=== PATIENT | male | born 1960 | race Caucasian/White ===

== ENCOUNTER 2021-11-11 08:50 | Day surgery (SDC) | payer BC, OTHER ==
--- NOTE | 2021-11-10 11:31 | HP ---
HISTORY AND PHYSICAL CHIEF COMPLAINT: Right knee pain. HISTORY OF PRESENT ILLNESS: Patient is a 61-year-old male who presents with progressive right knee pain for the past several years, worsening recently. He notes diffuse pain along with swelling and stiffness. He has locking and buckling. He has tried medications in addition to previous injections, with only partial temporary relief. He notes it severely limits him. PAST MEDICAL HISTORY: Significant for heart disease, keb-jzrjrmu-pmrnbdjzb diabetes. PAST SURGICAL HISTORY: Significant for rotator cuff repair and left hand surgery. CURRENT MEDICATIONS: Atorvastatin, metformin, Xarelto, Januvia. FAMILY HISTORY: Negative. SOCIAL HISTORY: Negative for current tobacco or alcohol use. REVIEW OF SYSTEMS: Sixteen-point review of systems otherwise reviewed and is noncontributory. PHYSICAL EXAMINATION: On examination, the patient is approximately 5 feet 7 inches, 230 pounds of endomorphic habitus. HEENT exam is nonfocal. Neck is supple. He has painless passive motion of the right hip. Straight-leg raise is negative. Active motion of the right knee: Minus 12 to 100 degrees of flexion. He has a mild effusion. He is tender about the medial joint line. Collaterals are stable, Sarahy is negative, Tesha's is equivocal. He has genu varum alignment. His distal neurovascular exam appears intact in the right lower extremity. He does have an antalgic gait pattern. Weightbearing notch, lateral and Merchant views of the right knee obtained in the office show severe medial compartment narrowing along with severe patellofemoral compartment narrowing. IMPRESSION: 1. Right knee severe medial and patellofemoral compartment osteoarthrosis. 2. Increased body mass index. 3. History of heart disease, on anticoagulation. RECOMMENDATIONS: I talked to the patient at length regarding his condition along with treatment options. At this point he is quite limited because of pain related to his osteoarthrosis despite previous conservative measures. After thorough discussion, he opts to proceed with surgery. We will plan to proceed with right total knee arthroplasty. We will reinstitute his Xarelto postoperatively. Risks and benefits were discussed at length in layman's terms. MMODL / IJN: [id number] /
[~2021-11-11 08:50] MED LIST: ACETAMINOPHEN TAB 500 MG TAB PO PRN; DEXAMETHASONE SOD PHOSPHATE 4 MG/ML 1 ML VIAL IV ONE; HYDROmorphone 0.5 MG/0.5 ML SYRINGE IVP PRN; MELOXICAM 7.5 MG TAB PO PRN; ONDANSETRON 4 MG/2 ML VIAL IVP ONE; TRANEXAMIC ACID 1,000 MG in SODIUM CHLORIDE 0.9% 100 ML IVPB PRN
[2021-11-11] MEDS: LACTATED RINGERS 1,000 ML IV SCH ×2 (09:20→14:31)
[2021-11-11 09:41] LABS: Glucose,Whole Blood 177 mg/dL (75-99)
[2021-11-11] MEDS ORDERED: MIDAZOLAM 2 MG/2 ML VIAL IVP ONE (09:51)
[2021-11-11] MEDS ORDERED: fentaNYL (PF) 50 MCG/ML 2 ML AMP IVP ONE (09:51)
[2021-11-11] MEDS ORDERED: PROPOFOL 10 MG/ML 20 ML VIAL IV ONE (10:30)
[2021-11-11] MEDS ORDERED: HYDROmorphone (PF) 1 MG/ML ONE (10:30)
[2021-11-11] MEDS ORDERED: fentaNYL (PF) 50 MCG/ML 2 ML AMP ONE (10:30)
[2021-11-11] MEDS ORDERED: ROPIVACAINE 5 MG/ML 30 ML VIAL ONE (10:30)
[2021-11-11] MEDS ORDERED: NEOSTIGMINE 1 MG/ML 10 ML VIAL ONE (10:30)
[2021-11-11] MEDS ORDERED: TRANEXAMIC ACID 1,000 MG/10 ML VIAL ONE (10:30)
[2021-11-11] MEDS ORDERED: GLYCOPYRROLATE 0.2 MG/ML 2 ML VIAL ONE (10:30)
[2021-11-11] MEDS ORDERED: SODIUM CHLORIDE 0.9% 100 ML BAG ONE (10:30)
[2021-11-11] MEDS ORDERED: ROCURONIUM 10 MG/ML (5 ML VIAL) IV ONE (10:30)
[2021-11-11] MEDS ORDERED: SODIUM CHLORIDE 0.9% (PF) 10 ML VIAL ONE (10:30)
[2021-11-11] MEDS ORDERED: SUCCINYLCHOLINE CHLORIDE 100 MG/5 ML SYR IV ONE (10:30)
--- NOTE | 2021-11-11 10:50 | P.ANPRN ---
Procedure Note - Anesthesia - Nerve Block Performed Right Adductor Canal Time Out Performed: Yes (09:51) Date of Procedure: 11/11/21 Procedure Start Time: Procedure Stop Time: :02 Location of Patient: PreOp Indication: Acute Post-Operative Pain, Requested by Surgeon (Dr Ye) Sedation Type: Sedate with meaningful contact maintained Preparation: Sterile Prep, Sterile Dressing Position: Supine Catheter: Indwelling Needle Types: Pajunk Needle Gauge: 21 Ultrasound used to visualize needle placement: Yes Ultrasound used to observe medication spread: Yes Injectate: 0.5% Ropivacaine (see comment for volume) (15cc) Blood Aspirated: No Pain Paresthesia on Injection Noted: No Resistance on Injection: Normal Image Stored and Saved: Yes Events: Uneventful and Well Tolerated
[2021-11-11] MEDS ORDERED: ROPIVACAINE 0.2%-NS ON-Q PUMP 1,090 MG, EMPTY PAIN BALL 1 EACH MISCELLANE PRN (10:51)
--- NOTE | 2021-11-11 10:51 | P.ANPRN ---
Procedure Note - Anesthesia - Nerve Block Performed Right iPack Time Out Performed: Yes Date of Procedure: 11/11/21 Procedure Start Time: 10:03 Procedure Stop Time: 10:11 Location of Patient: PreOp Indication: Acute Post-Operative Pain, Requested by Surgeon (Dr Ye) Sedation Type: Sedate with meaningful contact maintained Preparation: Sterile Prep Position: Supine Catheter: None Needle Types: Pajunk Needle Gauge: 21 Ultrasound used to visualize needle placement: Yes Ultrasound used to observe medication spread: Yes Injectate: 0.5% Ropivacaine (see comment for volume) (15cc + 5cc PF Normal saline) Blood Aspirated: No Pain Paresthesia on Injection Noted: No Resistance on Injection: Normal Image Stored and Saved: Yes Events: Uneventful and Well Tolerated
[2021-11-11] MEDS ORDERED: LACTATED RINGERS 1,000 ML IV ONE (11:44)
[2021-11-11] MEDS ORDERED: MAGNESIUM HYDROXIDE 2,400 MG/10 ML CUP PO PRN (12:18)
[2021-11-11] MEDS ORDERED: NALOXONE 0.4 MG/ML 1 ML VIAL IV PRN (12:18)
[2021-11-11] MEDS ORDERED: HYDROcodone/APAP 5-325MG 1 EACH TAB PO PRN (12:18)
[2021-11-11] MEDS ORDERED: HYDROcodone/APAP 7.5-325MG 1 EACH TAB PO PRN (12:18)
[2021-11-11] MEDS ORDERED: ONDANSETRON 4 MG/2 ML VIAL IVP PRN (12:18)
[2021-11-11] MEDS ORDERED: HYDROmorphone 1 MG/ML 1 ML SYRINGE IVP PRN ×2 (12:18)
--- NOTE | 2021-11-11 12:49 | P.OP ---
Date of Procedure: 11/11/21 Preoperative Diagnosis: Right knee severe tricompartmental osteoarthrosis Postoperative Diagnosis: Same Procedure(s) Performed: Right total knee arthroplastycementedposterior stabilized Implants: Depuy Attune size 7 cemented femoral component, size 6 cemented tibial component, 9 mm articular surface, 38 mm cemented patellar component. This is a posterior stabilized implant. Anesthesia: [facility] Surgeon: Christopher Ye Mental Retardation Nurse #1: Mukesh Oconnell Estimated Blood Loss (ml): 50 Pathology: other (Bone fragments) Condition: stable Disposition: PACU Indications for Procedure: The patient's a 61-year-old male who presents with progressive right knee pain secondary to osteoarthrosis despite conservative measures. A discussion of the risks and benefits of operative intervention versus continued conservative measures was made with the patient. He opted to proceed with surgery. Operative risks to include infection, neurovascular, development of blood clots, fracture, possible component loosening/failure need for subsequent procedures was discussed. Informed consent was obtained. Operative Findings: As below Description of Procedure: The patient was brought to the operating room, and after induction of spinal anesthesia the right lower extremity was prepped and draped in a normal fashion. The tourniquet was inflated to 270 mm marker. A longitudinal incision extending 3 finger breaths above the superior pole of patella extending to the medial aspect the tibial tubercle was then made. The skin and subcutaneous tissues were divided sharply. Electrocautery was used for hemostasis. A medial parapatellar arthrotomy was performed. The medial soft tissues to include the superficial and deep portions of the medial collateral ligament were elevated subperiosteally. The patella was everted. A portion of the retropatellar fat pad was excised sharply. The anterior cruciate ligament was sacrificed. Blunt retractors were placed. A starting hole was made in the distal femur 1 cm anterior to the posterior cruciate ligament origin. An intramedullary femoral guide was then inserted planning on 5 valgus distal cut with 9 mm distal resec tion. The cutting block was pinned in place. The distal cut was then made. The posterior referencing sizing guide was utilized. I felt size 7 was most appropriate. 3 of external rotation was built into the system and verified off the trans-epicondylar axis and the posterior condyles. The cutting block was pinned in place. The anterior, posterior, and chamfer cuts then made. Bone fragments were removed. The intercondylar guide was placed and the notch cut was made with a sagittal saw. The bone block was removed in one fragment. The trial component was then placed. There is good anterior to posterior and medial to lateral fit. The distal peg holes were drilled. The trial component was removed. Attention was then paid towards preparing the proximal femur. An extra medullary guide was utilized in line with the tibial shaft and second metatarsal distally. I planned on 2 mm resection from the medial compartment. The cutting block was pinned in place. The proximal tibial cut was then made. The bone was removed in one fragment. The remnants of the medial and lateral menisci were excised at the capsular junction with electrocautery. The tibia sized most appropriately at size 6. The trial femoral and tibial components were placed along with a 9 mm articular surface. I was able to obtain full flexion and extension with internal and external rotation. After several flexion and extension cycles, the tibial rotation was marked with electrocautery line with the medial one third of the tibial tubercle. Attention was then paid towards preparing the patella. A patella reamer was utilized taking stem to 14 mm of bone stock. A good flush cut was made. The patella sized most appropriately 38 mm. The peg holes were drilled. The trial components placed. I had good patellofemoral tracking with no hands technique. The trial components were then removed. The tibia was prepared in the appropriate rotation with appropriate drill and keel punch. The posterior osteophytes were removed with a curved osteotome. The flexion and extension gaps were checked and felt to be symmetric at 9 mm. A trial components were then removed. The bony surfaces were prepared with pulsatile lavage and dried. The tibial component was then cemented place was fully seated. Excess cement was removed. The femoral component cemented place and was fully seated. Excess cement was removed. The trial 9 mm articular surface was placed and the knee was put in full extension. The patella component was cemented place. After the cement had sufficiently hardened, the knee was again taken through a range of motion. Again I was able to obtain full flexion and extension with varus and valgus stress. The trial 9 mm articular surface was removed and the final one inserted. This was fully seated. Care was taken to avoid any soft tissue interposition. Pulsatile lavage was again utilized. The medial parapatellar arthrotomy was closed with #2 Ethibond suture. The tourniquet was deflated with approximately 65 minutes total tourniquet time. Final hemostasis was obtained with the cautery. There was minimal bleeding therefore a deep drain was not placed. The subcutaneous tissues were reapproximated with interrupted 2-0 Vicryl sutures. The skin was reapproximated with 3-0 subcuticular strata fix suture. Skin tape and adhesive was applied. A sterile dressing was applied. The patient was awoken from sedation and transferred to recovery room in good condition. Blood loss was estimated at 50 mL. No complications were incurred. Sponge and needle counts were correct at the end of the case. Bogdan CARPENTER assisted during the major components of this case to include exposure, bone resection, implantation, and closure.
[2021-11-11 13:19] LABS: Glucose,Whole Blood 269 mg/dL (75-99)
[2021-11-11] MEDS ORDERED: INSULIN ASPART (NovoLOG) 100 UNIT/ML VIAL SQ ONE (13:28)
--- NOTE | 2021-11-11 13:38 | XR ---
Right knee HISTORY: Status post right knee arthroplasty 2 views the right knee Patient is status post right knee arthroplasty. There is anatomic alignment. Lucency is present withi n the soft tissues. There are vascular calcifications noted. Bone mineralization is reduced. IMPRESSION: Orthopedic follow-up.
[2021-11-11] MEDS: INSULIN ASPART (NovoLOG) 100 UNIT/ML VIAL SQ SCH ×2 (17:18→21:37)
--- NOTE | 2021-11-11 17:33 | P.CONS ---
History of Present Illness - Reason for Consult Consult date: 11/11/21 Medical Management Requesting physician: Mukesh Oconnell - History of Present Illness History of Presenting Illness: Patient is a very pleasant 61-year-old male with a past medical history of hyperlipidemia, type II gma-djbuncv-komsdmpdw diabetes mellitus, paroxysmal atrial fibrillation on anticoagulation with Xarelto, and osteoarthritis. Patient is currently admitted to orthopedic surgery team under Dr. Ye and underwent an elective right total knee arthroplasty secondary to severe tricompartmental osteoarthrosis of right knee. We have been consulted to follow along with patient for continued medical management throughout his hospitalization. Patient seen and fully evaluated at the bedside. He reports postsurgical pain is completely controlled at this time. He denies having any postoperative nausea or vomiting and is tolerating oral intake without any difficulties. Patient denies any recent fevers or infections. He denies history of blood clots. Patient denies having any headache, lightheadedness, dizziness, chest pain, shortness of breath, nausea, vomiting, or experiencing any numbness/tingling in his extremities. Review of systems: Pertinent positives and negatives as discussed in HPI, a complete review of systems was performed and all other systems are negative. Physical exam: Vital signs reviewed and stable. General: Nontoxic, no distress and appears stated age. Derm: Skin warm and dry, normal coloration for ethnicity. Surgical dressing and ice pack and need to right knee. Head: Atraumatic, normocephalic and symmetric. Eyes: EOMs intact, no lid lag, and anicteric sclera Mouth: no lip lesions, mucus membranes moist Cardiovascular: regular rate and rhythm with normal S1S2, no murmur, positive posterior tibial pulses bilaterally, and cap refill < 2 seconds. Lungs: Respirations even, regular, and unlabored on room air. Lungs CTA bilaterally, no rhonchi, no rales, no wheezing, and no accessory muscle usage. Abdominal: Obese abdomen soft, nontender to palpation, no guarding, no appreciable organomegaly Ext: ROM intact. No gross muscle atrophy, no edema, no contractures Neuro: Speech clear, face symmetrical and CN II-XII grossly intact with no noted focal neuro deficits Psych: Alert and oriented to person, place, time, and situation. Appropriate and pleasant affect. Assessment and Plan of Care: Status post right total knee arthroplasty completed by Dr. Ye 11/11/21. -Management per primary admitting Gen. surgery team including pain management, DVT prophylaxis, weightbearing, and PT/OT. Type II jdx-oyskhha-jjaqabaen diabetes mellitus with hyperglycemia -Blood glucose 269 -Hold oral hypoglycemic medications and place patient on glycemic protocol with NovoLog sliding scale. Hyperlipidemia -Continue daily medication regimen. Paroxysmal atrial fibrillation on anticoagulation with Xarelto -Patient has been cleared by surgery team to resume Xarelto Thank you for allowing us to participate in the care of this pleasant patient. Do not hesitate to contact us with questions. Someone can be reached from the [facility] hospitalist group all hours of the day at [phone] or via [employer]. Past Medical History Past Medical History: Atrial Fibrillation, Diabetes Mellitus, Hyperlipidemia, Skin Disorder Additional Past Medical History / Comment(s): wound rt heel History of Any Multi-Drug Resistant Organisms: None Reported Past Surgical History: Cardiac Ablation, Orthopedic Surgery Additional Past Surgical History / Comment(s): cardioversion, rotator cuff surg., hand surg., throat surgery, total right knee 2021. Past Anesthesia/Blood Transfusion Reactions: No Reported Reaction Smoking Status: Never smoker Past Alcohol Use History: None Reported Past Drug Use History: None Reported - Past Family History Mother Family Medical History: No Reported History Medications and Allergies Home Medications Medication Instructions Recorded Confirmed Type Rivaroxaban [Xarelto] 20 mg PO DAILY 11/02/14 11/11/21 History metFORMIN HCL [Glucophage] 500 mg PO BID 11/02/14 11/11/21 History Atorvastatin [Lipitor] 10 mg PO DAILY 05/09/15 11/11/21 History Pioglitazone [Actos] 30 mg PO DAILY 11/11/21 11/11/21 History sitaGLIPtin PHOSPHATE [Januvia] 100 mg PO DAILY 11/11/21 11/11/21 History Allergies Allergy/AdvReac Type Severity Reaction Status Date / Time No Known Allergies Allergy Verified 06/14/15 10:22 Physical Exam Vitals: Vital Signs Temp Pulse Resp BP Pulse Ox 11/11/21 14:32 68 16 134/63 99 11/11/21 14:17 69 16 121/56 99 11/11/21 14:02 68 16 128/61 98 11/11/21 13:47 62 16 130/61 98 11/11/21 13:33 69 16 128/60 97 11/11/21 13:19 67 16 120/57 97 11/11/21 13:03 62 16 137/63 99 11/11/21 12:48 98 F 78 18 141/66 91 L 11/11/21 10:13 66 18 127/65 99 11/11/21 09:29 97.8 F 80 18 150/69 97 Intake and Output 11/11/21 11/11/21 11/11/21 06:59 14:59 22:59 Intake Total 1350 Output Total 50 Balance 1300 Intake: IV 1350 Output: Estimated Blood Loss 50 Other: Weight 108.5 kg Results Labs: Abnormal Lab Results - Last 24 Hours (Table) 11/11/21 11/11/21 Range/Units 09:36 13:18 POC Glucose (mg/dL) 177 H 269 H (75-99) mg/dL
[2021-11-11] MEDS ORDERED: SENNOSIDES-DOCUSATE SODIUM 1 EACH TAB PO SCH (21:00)
[2021-11-11 21:19] LABS: Glucose,Whole Blood 218 mg/dL (75-99)
[2021-11-12 07:13] LABS: Glucose,Whole Blood 185 mg/dL (75-99)
[2021-11-12 07:48] LABS: ALT 15 U/L (4-49); AST 20 U/L (17-59); African American GFR (CKD) >90 (>60 ml/min/1.73 sqM); Albumin 3.6 g/dL (3.5-5.0); Albumin/Globulin Ratio 1.2; Alkaline Phosphatase 52 U/L (38-126); Anion Gap 9 mmol/L; Blood Urea Nitrogen 21 mg/dL (9-20); Calcium 8.3 mg/dL (8.4-10.2); Carbon Dioxide 21 mmol/L (22-30); Chloride 103 mmol/L (98-107); Globulin 2.9 g/dL; Glucose 184 mg/dL (74-99); Magnesium 1.3 mg/dL (1.6-2.3); Non-African American GFR(CKD) 87 (>60 ml/min/1.73 sqM); Potassium 4.2 mmol/L (3.5-5.1); Sodium 133 mmol/L (137-145); Total Bilirubin 0.5 mg/dL (0.2-1.3); Total Protein 6.5 g/dL (6.3-8.2)
[2021-11-12] MEDS: INSULIN ASPART (NovoLOG) 100 UNIT/ML VIAL SQ SCH ×2 (07:53→12:11)
[2021-11-12] MEDS ORDERED: ATORVASTATIN 10 MG TAB PO SCH (09:00)
[2021-11-12] MEDS ORDERED: RIVAROXABAN 10 MG TAB PO SCH (09:00)
[2021-11-12 09:39] LABS: Basophils # (A) 0.01 X 10*3/uL (0.00-0.10); Basophils % (A) 0.1 %; Eosinophils # (A) 0.01 X 10*3/uL (0.04-0.35); Eosinophils % (A) 0.1 %; HCT 34.3 % (39.6-50.0); HGB 11.4 g/dL (13.0-17.0); Immature Grans, Automated 0.3 %; Lymphocytes # (A) 2.24 X 10*3/uL (0.90-5.00); Lymphocytes % (A) 18.7 %; MCH 31.8 pg (27.0-32.0); MCHC 33.2 g/dL (32.0-37.0); MCV 95.5 fL (80.0-97.0); Mean Platelet Volume 9.7 fL (9.5-12.2); Monocytes # (A) 0.94 X 10*3/uL (0.20-1.00); Monocytes % (A) 7.9 %; NRBC Per 100 WBC 0 /100 WBCS (0.0-0.0); Neutrophils # (A) 8.72 X 10*3/uL (1.80-7.70); Neutrophils % (A) 72.9 %; Platelet Count 222 X 10*3/uL (140-440); RBC 3.59 X 10*6/uL (4.40-5.60); RDW 12.7 % (11.5-14.5); WBC 11.96 X 10*3/uL (4.50-10.00)
--- NOTE | 2021-11-12 10:06 | P.PN ---
Progress Note - Text Progress Note Date: 11/12/21 (285) Anesthesiology Postop day 1 status post total knee arthroplasty with adductor canal catheter. Patient doing well. VAS 1 out of 10. Increases to 4 out of 10 with activity. Breakthrough meds available Gross strength intact in lower extremity. Afebrile. Denies alterations in sensorium. Catheter site intact. Heart regular rate Lungs nonlabored Abdomen nondistended Assessment: Postop day 1 status post total knee arthroplasty with adductor canal catheter Plan: All questions answered. Maintain catheter 2 more days with patient removal at home. Instructions were given at discharge.
--- NOTE | 2021-11-12 10:20 | P.PN ---
Subjective Progress Note Date: 11/12/21 Principal diagnosis: Status post right total knee arthroplasty Patient evaluated at bedside, he is resting comfortably. He did very well with physical therapy.. His pain is well-controlled. Currently he denies any headaches, lightheadedness, chest pain or shortness of breath. Objective - Vital Signs Vital signs: Vital Signs Temp 99.1 F 11/12/21 08:00 Pulse 73 11/12/21 08:00 Resp 16 11/12/21 08:00 BP 147/72 11/12/21 08:00 Pulse Ox 95 11/12/21 08:00 Intake & Output 11/11/21 11/12/21 11/12/21 18:59 06:59 18:59 Intake Total 1350 Output Total 50 400 Balance 1300 -400 Weight 108.5 kg Intake: IV 1350 Output: Urine 400 Estimated Blood Loss 50 Other: Voiding Method Toilet # Voids 1 - Exam Right lower extremity: Incision is clean, dry, and intact. The exofin fusion tape is in good condition. There is minimal soft tissue swelling and ecchymosis surrounding the medial and lateral aspects of the incision. Calf is soft, no tenderness with palpation. Plantar flexion, dorsiflexion, EHL, FHL are intact. Sensory exam to light touch throughout the extremity is intact, dorsal pedis pulses 2+. - Labs CBC & Chem 7: 11/12/21 05:30 11/12/21 05:30 Labs: Abnormal Lab Results - Last 24 Hours (Table) 11/11/21 11/11/21 11/12/21 Range/Units 13:18 21:18 05:30 WBC 11.96 H (4.50-10.00) X 10*3/uL RBC 3.59 L (4.40-5.60) X 10*6/uL Hgb 11.4 L (13.0-17.0) g/dL Hct 34.3 L (39.6-50.0) % Neutrophils # 8.72 H (1.80-7.70) X 10*3/uL Eosinophils # 0.01 L (0.04-0.35) X 10*3/uL Sodium (137-145) mmol/L Carbon Dioxide (22-30) mmol/L BUN (9-20) mg/dL Glucose (74-99) mg/dL POC Glucose (mg/dL) 269 H 218 H (75-99) mg/dL Calcium (8.4-10.2) mg/dL Magnesium (1.6-2.3) mg/dL 11/12/21 11/12/21 Range/Units 05:30 07:12 WBC (4.50-10.00) X 10*3/uL RBC (4.40-5.60) X 10*6/uL Hgb (13.0-17.0) g/dL Hct (39.6-50.0) % Neutrophils # (1.80-7.70) X 10*3/uL Eosinophils # (0.04-0.35) X 10*3/uL Sodium 133 L (137-145) mmol/L Carbon Dioxide 21 L (22-30) mmol/L BUN 21 H (9-20) mg/dL Glucose 184 H (74-99) mg/dL POC Glucose (mg/dL) 185 H (75-99) mg/dL Calcium 8.3 L (8.4-10.2) mg/dL Magnesium 1.3 L (1.6-2.3) mg/dL Assessment and Plan Assessment: Postoperative day #1 status post right total knee arthroplasty Plan: Pain control, plan for discharge home on oral medication DVT prophylaxis, Xarelto 20 mg has been resuming Wound care instructions were discussed, this will include icing and elevating along with showering Encourage incentive spirometer Home health care after discharge Medical recommendations Discharge planning: Stable for discharge home today Time with Patient: Less than 30
--- NOTE | 2021-11-12 10:27 | P.DS ---
Providers Date of admission: 11/11/2021 Expected date of discharge: 11/12/21 Attending physician: Christopher Ye Consults: 11/11/21 12:20 Consult Physician Routine Consulting Provider: Dahlia Mcmahan Consult Reason/Comments: Medical Management Do you want consulting provider notified?: Yes Primary care physician: Candy Butcher MD Hospital Course: Date of admission: 11/11/2021 Date of discharge: 11/12/2021 Admission diagnosis: Status post post right total knee arthroplasty Discharge diagnosis: Same Attending physician: Dr. Ye Surgical procedures: Right total knee arthroplasty Brief history: Patient is a 61 year-old male with a history of progressive primary right knee osteoarthritis. At this point patient has failed conservative treatment measures and has opted to proceed with a elective right total knee arthroplasty. Hospital course: Details of patient's surgery can be found in operative report. Patient tolerated the procedure well and was subsequently transported to orthopedic floor. Patient's orthopeidc and medical care was provided daily. Patient had daily laboratory tests performed for evaluation of overall blood counts. Patient had daily physical therapy to include strengthening range of motion as well as education with walker ambulation. Patient was treated with Xarelto for their postoperative DVT prophylaxis during their inpatient stay. Patient was noted to have a relatively uneventful postoperative course. Patient reported satisfactory pain control with oral pain medications by postoperative day 0. Patient showed satisfactory progress with physical therapy. Patient moved steadily through the program and had no difficulty meeting the goals by postoperative day 1. Given patient's otherwise satisfactory course and having met physical therapy goals, plan is to discharge patient home on postoperative day 1. Discharge condition/disposition: Patient will be discharged home in stable condition. Discharge medications: Instructions are given on resumption of patient's normal daily medications per primary care recommendation, in addition patient will be prescribed [place] 7.5 mg/325 mg, Colace 100 mg. Discharge instructions: 1. Wound care and infection precautions, keep incision dry and covered while showering, no lotions, creams, moisturizers. No soaking, tubs, pools, hottubs. Do not scrub over the incision. 2. Weight-bear as tolerated with walker / cane until follow-up. 3. Ice and elevate when necessary. Do not exceed 20 minutes per hour with ice pack. 4. Utilize compression sleeve until seen at first follow up appointment. 5. Visiting nursing care. 6. Home physical therapy including home CPM. 7. Pain meds and anticoagulants per prescription. 8. Pain medication has potential to cause constipation. Increase oral fluid and fiber intake. Contact primary care provider if you have not had a bowel movement within 48 hours after discharge 9. No anti-inflammatory medication until discussed at first post operative visit, this including Motrin, Aleve, Mobic, Diclofenac. 10. Follow up in office at 2 weeks postop with Bogdan Oconnell PA-C/Francis Cason 11. Follow up with your primary care doctor 7-10 days after discharge. 12. Contact [facility] with any questions, . Procedures: Right total knee arthroplasty Patient Condition at Discharge: Good Plan - Discharge Summary Discharge Rx Participant: Yes New Discharge Prescriptions: New Docusate [Colace] 100 mg PO DAILY #30 capsule HYDROcodone/APAP 7.5-325MG [[place] 7.5] 1 - 2 each PO Q6HR PRN #42 tab PRN Reason: Pain No Action metFORMIN HCL [Glucophage] 500 mg PO BID Rivaroxaban [Xarelto] 20 mg PO DAILY Atorvastatin [Lipitor] 10 mg PO DAILY sitaGLIPtin PHOSPHATE [Januvia] 100 mg PO DAILY Pioglitazone [Actos] 30 mg PO DAILY Discharge Medication List Rivaroxaban [Xarelto] 20 mg PO DAILY 11/02/14 [History] metFORMIN HCL [Glucophage] 500 mg PO BID 11/02/14 [History] Atorvastatin [Lipitor] 10 mg PO DAILY 05/09/15 [History] Pioglitazone [Actos] 30 mg PO DAILY 11/11/21 [History] sitaGLIPtin PHOSPHATE [Januvia] 100 mg PO DAILY 11/11/21 [History] Docusate [Colace] 100 mg PO DAILY #30 capsule 11/12/21 [Rx] HYDROcodone/APAP 7.5-325MG [[place] 7.5] 1 - 2 each PO Q6HR PRN #42 tab 11/12/21 [Rx] Follow up Appointment(s)/Referral(s): [facility], [NON-STAFF] - As Needed Francis Webster, PAC [PHYSICIAN FENCE BUILDER] - 2 Weeks [facility] [NON-STAFF] - As Needed (Continuous Passive Motion knee machine and walker) Activity/Diet/Wound Care/Special Instructions: Orthopedic Discharge Instructions: 1. Wound care and infection precautions, keep incision dry and covered while showering, no lotions, creams, moisturizers. No soaking, pools, hot tubs. Do not scrub over incision. 2. Weight-bear as tolerated with walker / cane until follow-up. 3. Ice and elevate when necessary. Do not exceed 20 minutes per hour with ice pack. 4. Utilize compression sleeve until seen at first follow up appointment. 5. Pain meds and anticoagulants per prescription. 6. Pain medication has potential to cause constipation. Increase oral fluid and fiber intake. Contact primary care provider if you have not had a bowel movement within 48 hours after discharge. 7. No anti-inflammatory medication until discussed at first post operative visit, this including Motrin, Aleve, Mobic, Diclofenac. 8. Follow up in office at 2 weeks postop with Bogdan Oconnell PA-C/Francis Webster PA-C 9. Follow up with your primary care doctor 7-10 days after discharge. 10. Contact [facility] with any questions, . Discharge Disposition: HOME WITH HOME HEALTH SERVICES
--- NOTE | 2021-11-12 10:46 | P.PN ---
Subjective Progress Note Date: 11/12/21 History of Presenting Illness: Patient is a very pleasant 61-year-old male with a past medical history of hyperlipidemia, type II ymi-zhogtwd-faloovehk diabetes mellitus, paroxysmal atrial fibrillation on anticoagulation with Xarelto, and osteoarthritis. Patient is currently admitted to orthopedic surgery team under Dr. Ye and underwent an elective right total knee arthroplasty secondary to severe tricompartmental osteoarthrosis of right knee. We have been consulted to follow along with patient for continued medical management throughout his hospitaliz ation. Physical exam: Patient seen and fully evaluated at bedside this morning. He was sitting up in chair and appeared to be doing well. Patient reports postoperative pain remains controlled and continues to deny having any complaints including headache, lightheadedness, dizziness, chest pain, palpitations, shortness of breath, or experiencing any numbness/tingling/weakness in his extremities. Patient has been ambulatory and broom with walker. Patient's magnesium levels were critically low 1.3, orders place for 4 g for replacement. Patient medically stable for discharge once magnesium has been replaced and will be started on oral daily supplements. Patient to follow up outpatient for redraw of labs in 3 days with results to be sent to PCP for follow-up. Vital signs reviewed and stable. General: Nontoxic, no distress and appears stated age. Derm: Skin warm and dry, normal coloration for ethnicity. Surgical dressing and ice pack and need to right knee. Head: Atraumatic, normocephalic and symmetric. Eyes: EOMs intact, no lid lag, and anicteric sclera Mouth: no lip lesions, mucus membranes moist Cardiovascular: regular rate and rhythm with normal S1S2, no murmur, positive posterior tibial pulses bilaterally, and cap refill < 2 seconds. Lungs: Respirations even, regular, and unlabored on room air. Lungs CTA bilaterally, no rhonchi, no rales, no wheezing, and no accessory muscle usage. Abdominal: Obese abdomen soft, nontender to palpation, no guarding, no appreciable organomegaly Ext: ROM intact. No gross muscle atrophy, no edema, no contractures Neuro: Speech clear, face symmetrical and CN II-XII grossly intact with no noted focal neuro deficits Psych: Alert and oriented to person, place, time, and situation. Appropriate and pleasant affect. Assessment and Plan of Care: Hypomagnesemia -Replaced with 4 g IVPB and start patient on oral daily supplements Mag-Ox 400 M GH morning. -Patient medically stable for discharge once magnesium has been replaced and to follow up outpatient for redraw of levels in 3 days. Results to be sent to PCP for follow-up. Status post right total knee arthroplasty completed by Dr. Ye 11/11/21. -Management per primary admitting Gen. surgery team including pain management, DVT prophylaxis, weightbearing, and PT/OT. Type II mlu-whwtakf-rvtuvppnr diabetes mellitus with hyperglycemia -Blood glucose 269 -Hold oral hypoglycemic medications and place patient on glycemic protocol with NovoLog sliding scale. Hyperlipidemia -Continue daily medication regimen. Paroxysmal atrial fibrillation on anticoagulation with Xarelto -Patient has been cleared by surgery team to resume Xarelto Thank you for allowing us to participate in the care of this pleasant patient. Do not hesitate to contact us with questions. Someone can be reached from the [facility] hospitalist group all hours of the day at [phone] or via [employer]. Objective - Vital Signs Vital signs: Vital Signs Temp 99.1 F 11/12/21 08:00 Pulse 73 11/12/21 08:00 Resp 16 11/12/21 08:00 BP 147/72 11/12/21 08:00 Pulse Ox 95 11/12/21 08:00 Intake & Output 11/11/21 11/12/21 11/12/21 18:59 06:59 18:59 Intake Total 1350 Output Total 50 400 Balance 1300 -400 Weight 108.5 kg Intake: IV 1350 Output: Urine 400 Estimated Blood Loss 50 Other: Voiding Method Toilet # Voids 1 - Labs CBC & Chem 7: 11/12/21 05:30 11/12/21 05:30 Labs: Abnormal Lab Results - Last 24 Hours (Table) 11/11/21 11/11/21 11/12/21 Range/Units 13:18 21:18 05:30 WBC 11.96 H (4.50-10.00) X 10*3/uL RBC 3.59 L (4.40-5.60) X 10*6/uL Hgb 11.4 L (13.0-17.0) g/dL Hct 34.3 L (39.6-50.0) % Neutrophils # 8.72 H (1.80-7.70) X 10*3/uL Eosinophils # 0.01 L (0.04-0.35) X 10*3/uL Sodium (137-145) mmol/L Carbon Dioxide (22-30) mmol/L BUN (9-20) mg/dL Glucose (74-99) mg/dL POC Glucose (mg/dL) 269 H 218 H (75-99) mg/dL Calcium (8.4-10.2) mg/dL Magnesium (1.6-2.3) mg/dL 11/12/21 11/12/21 Range/Units 05:30 07:12 WBC (4.50-10.00) X 10*3/uL RBC (4.40-5.60) X 10*6/uL Hgb (13.0-17.0) g/dL Hct (39.6-50.0) % Neutrophils # (1.80-7.70) X 10*3/uL Eosinophils # (0.04-0.35) X 10*3/uL Sodium 133 L (137-145) mmol/L Carbon Dioxide 21 L (22-30) mmol/L BUN 21 H (9-20) mg/dL Glucose 184 H (74-99) mg/dL POC Glucose (mg/dL) 185 H (75-99) mg/dL Calcium 8.3 L (8.4-10.2) mg/dL Magnesium 1.3 L (1.6-2.3) mg/dL
[2021-11-12] MEDS: MAGNESIUM SULFATE-D5W PMX 1 GM in DEXTROSE/WATER 1 100ML.BAG IVPB SCH ×4 (11:01→14:29)
[2021-11-12 11:45] LABS: Glucose,Whole Blood 211 mg/dL (75-99)
[2021-11-12 16:39] VITALS: BP 177/73; PULSE 82; RESP 15; TEMP 99.2
== END 2021-11-12 17:37 | disposition home health service (06) ==
LOC: OR 08:50 → 4SSUR 12:43 → OR 11-12 17:37
PROVIDERS: ATTEND Orthopaedic Surgery
DX: M17.11 Unilateral primary osteoarthritis, right knee (principal); E78.5 Hyperlipidemia, unspecified; I49.9 Cardiac arrhythmia, unspecified; E11.9 Type 2 diabetes mellitus without complications
CPT/HCPCS: 27447; 64999; 64448; 97161; 76942; 80053; 83735; 85025; 88300; 73560; C1713 ×2; C1776; J2250; J1100; J0690 ×2; J2405; J3010; J3475; J2795

== ENCOUNTER → 2022-08-17 | Outpatient (CLI) | payer BC | END | disposition home or self-care (01) | LOC: LABPAT 07:55 | PROVIDERS: ATTEND Orthopaedic Surgery | DX: Z01.812 Encounter for preprocedural laboratory examination (principal); Z22.322 Carrier or suspected carrier of Methicillin resistant Staphylococcus aureus; M17.12 Unilateral primary osteoarthritis, left knee | CPT/HCPCS: 87070 ==

== ENCOUNTER → 2022-08-31 | Outpatient (CLI) | payer BC ==
[~2022-08-31] MED LIST changes: -ACETAMINOPHEN TAB 500 MG TAB PO PRN; -DEXAMETHASONE SOD PHOSPHATE 4 MG/ML 1 ML VIAL IV ONE; +DOBUTamine DRIP for NUC MED 500 MG in DEXTROSE/WATER 1 250ML.BAG IV PRN; -HYDROmorphone 0.5 MG/0.5 ML SYRINGE IVP PRN; -MELOXICAM 7.5 MG TAB PO PRN; -ONDANSETRON 4 MG/2 ML VIAL IVP ONE; -TRANEXAMIC ACID 1,000 MG in SODIUM CHLORIDE 0.9% 100 ML IVPB PRN
--- NOTE | 2022-08-31 13:14 | CA ---
Dobutamine Stress Echocardiogram Report Phu Guillermo Age: 62 Gender: M : 1960 Exam Date: 08/31/2022 09:21 Exam Location: [facility] Ordering Physician: Alejandro Richardson MD Referring Physician: Tiffany Santiago [employer] Manager: Paulina King RDCS Technologist: Ht (in): 67 Wt (lb): 219 Procedure CPT: Indication: I48.91 UNSP ATRIAL FIBRILLATION ICD-9 Codes: Rhythm: Patient History: Diabetes mellitus, Hyperlipidemia Cardiac Medications: Medications in past 24 hours: Contrast: Total Dose (mL): Stress Results Protocol: Peak Dose (???g/kg/min): 30 Duration (min:sec): Atropine:(mg) Target HR: 135 Double Product: [id number] Resting HR: 82 Resting BP: 109 / 67 Peak HR: 145 Peak BP: 162 / 38 Max Predicted HR: 159 91 % Max Predicted HR Stress Summary: BP Response: Reason for Termination: Exceeded target heart rate Cardiac Symptoms: ECG Analysis Resting EKG: Stress EKG: Arrhythmia: Echo Analysis Base Echo Analysis: Low Echo Anaylsis: Peak Echo Analysis: Recovery Echo: MEASUREMENTS (Male/Female) Normal Values CONCLUSIONS Mildly abnormal EKG in response to dobutamine Normal echocardiogram in responsive to dobutamine with no wall motion abnormalities noted Dr. Francisco Montague MD (Electronically Signed) Final Date: 31 August 2022 13:13
== END | disposition home or self-care (01) ==
LOC: RADNMMAIN 08:43
PROVIDERS: ATTEND Family Medicine
DX: I48.91 Unspecified atrial fibrillation (principal)
CPT/HCPCS: 93351; Q9950

== ENCOUNTER → 2022-11-30 | Outpatient (CLI) | payer BC ==
[2022-11-30 14:35] LABS: Basophils # (A) 0.02 X 10*3/uL (0.00-0.10); Basophils % (A) 0.3 %; Eosinophils # (A) 0.17 X 10*3/uL (0.04-0.35); Eosinophils % (A) 2.2 %; HCT 38.5 % (39.6-50.0); HGB 12.5 g/dL (13.0-17.0); Immature Grans, Automated 0.3 %; Lymphocytes # (A) 1.99 X 10*3/uL (0.90-5.00); Lymphocytes % (A) 25.6 %; MCH 31.5 pg (27.0-32.0); MCHC 32.5 g/dL (32.0-37.0); Mean Platelet Volume 10.1 fL (9.5-12.2); Monocytes # (A) 0.62 X 10*3/uL (0.20-1.00); NRBC Per 100 WBC 0 /100 WBCS (0.0-0.0); Neutrophils # (A) 4.94 X 10*3/uL (1.80-7.70); Neutrophils % (A) 63.6 %; Platelet Count 250 X 10*3/uL (140-440); RBC 3.97 X 10*6/uL (4.40-5.60); RDW 12.6 % (11.5-14.5); WBC 7.76 X 10*3/uL (4.50-10.00)
[2022-11-30 15:18] LABS: INR 0.97 (0.90-1.11)
[2022-11-30 15:25] LABS: Anion Gap 11.8 mmol/L (10.00-18.00); BUN/Creat Ratio 18.74 Ratio (12.00-20.00); Blood Urea Nitrogen 22.3 mg/dL (9.0-27.0); Calcium 9.7 mg/dL (8.7-10.3); Carbon Dioxide 25.7 mmol/L (20.0-27.5); Non-African American GFR(CKD) 65.5 (60.0-200.0); Potassium 4.6 mmol/L (3.5-5.5)
== END | disposition home or self-care (01) ==
LOC: LABPAT 07:51
PROVIDERS: ATTEND Orthopaedic Surgery
DX: Z01.812 Encounter for preprocedural laboratory examination (principal); M17.12 Unilateral primary osteoarthritis, left knee; Z22.322 Carrier or suspected carrier of Methicillin resistant Staphylococcus aureus
CPT/HCPCS: 80048; 85025; 85610; 87070; 93005

== ENCOUNTER 2022-12-08 08:17 | Day surgery (SDC) | payer BC ==
--- NOTE | 2022-12-07 09:09 | P.HPOR ---
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 He has diffuse pain with any weightbearing activities. He has intermittent buckling along with night symptoms. He's tried medications in addition to injections with only partial temporary relief. Review of Systems As per HPI Past Medical History Past Medical History: Atrial Fibrillation, Diabetes Mellitus, Hyperlipidemia, Hypertension, Osteoarthritis (OA) Additional Past Medical History / Comment(s): wound rt heel History of Any Multi-Drug Resistant Organisms: None Reported Past Surgical History: Cardiac Ablation, Joint Replacement, Orthopedic Surgery Additional Past Surgical History / Comment(s): cardioversion, rotator cuff surg., hand surg., prior throat surgery for infection yrs. ago, total right knee 2021. Past Anesthesia/Blood Transfusion Reactions: No Reported Reaction Smoking Status: Never smoker - Past Family History Mother Family Medical History: No Reported History Medications and Allergies Home Medications Medication Instructions Recorded Confirmed Type Rivaroxaban [Xarelto] 20 mg PO DAILY 11/02/14 12/07/22 History metFORMIN HCL [Glucophage] 500 mg PO BID 11/02/14 12/07/22 History Atorvastatin [Lipitor] 20 mg PO DAILY 05/09/15 12/07/22 History Pioglitazone [Actos] 45 mg PO DAILY 11/11/21 12/07/22 History Cholecalciferol [Vitamin D3 (25 2,000 unit PO DAILY 12/07/22 12/07/22 History Mcg = 1000 Iu)] Semaglutide [Ozempic] 0.5 mg SQ JAMES 12/07/22 12/07/22 History lisinopriL [Zestril] 2.5 mg PO DAILY 12/07/22 12/07/22 History Allergies Allergy/AdvReac Type Severity Reaction Status Date / Time No Known Allergies Allergy Verified 12/07/22 08:44 Physical Examination - Knee left Appearance: effusion Effusion grade: grade 1 Varus alignment in stance: 5 degrees Tenderness with palpation: anterior, medial Pain: with flexion Gait: limping ROM: extension: -10 degrees ROM: flexion: 110 degrees Crepitus with motion: Yes Strength: extension: 5/5 Strength: flexion: 5/5 Meniscal tests: medial meniscal tests: positive, medial joint line pain: p ositive Results The patient is a well-developed well-nourished male approximately 5 foot 7, 226 pounds of endomorphic habitus. HEENT exam is nonfocal, neck is supple. He has pain with passive motion of the left hip. Straight leg raise is negative. His distal neurovascular appears intact in left lower extremity. - Diagnostic results Knee x-ray: image reviewed (3 views of the left knee obtainined in the office show severe medial compartment osteoarthrosis with vorr-vy-rgpb changes and subchondral sclerosis.) Assessment and Plan Assessment: Left knee severe medial and patellofemoral compartment osteoarthrosis History of heart disease Plan: I talked to the patient regarding his condition along with treatment options. At this point he's quite symptomatic despite previous conservative measures and having both pain and mechanical symptoms related to his osteoarthrosis. After thorough discussion he opted to proceed with surgery. We'll proceed with left total knee arthroplasty. We will reinstitute his anticoagulation postoperatively.
[~2022-12-08 08:17] MED LIST changes: +ACETAMINOPHEN TAB 500 MG TAB PO PRN; +DEXAMETHASONE SOD PHOSPHATE 4 MG/ML 1 ML VIAL IV ONE; -DOBUTamine DRIP for NUC MED 500 MG in DEXTROSE/WATER 1 250ML.BAG IV PRN; +HYDROmorphone 0.5 MG/0.5 ML SYRINGE IVP PRN; +MELOXICAM 7.5 MG TAB PO PRN; +ONDANSETRON 4 MG/2 ML VIAL IVP ONE; +TRANEXAMIC ACID IN NACL,ISO-OS 1,000 MG in SALINE 1 100ML.BAG IVPB PRN
[2022-12-08] MEDS ORDERED: ACETAMINOPHEN TAB 500 MG TAB ONE (09:17)
[2022-12-08] MEDS: LACTATED RINGERS 1,000 ML IV SCH (09:36)
[2022-12-08] MEDS ORDERED: MIDAZOLAM 2 MG/2 ML VIAL IVP ONE (09:38)
[2022-12-08 09:44] LABS: Glucose,Whole Blood 136 mg/dL (70-110)
[2022-12-08] MEDS ORDERED: PROPOFOL 10 MG/ML 20 ML VIAL IV ONE (10:05)
[2022-12-08] MEDS ORDERED: SUCCINYLCHOLINE CHLORIDE 200 MG/10 ML VIAL IV ONE (10:05)
[2022-12-08] MEDS ORDERED: NEOSTIGMINE 1 MG/ML 10 ML VIAL ONE (10:05)
[2022-12-08] MEDS ORDERED: ROCURONIUM 10 MG/ML (5 ML VIAL) IV ONE (10:05)
[2022-12-08] MEDS ORDERED: LIDOCAINE 2% INJ 20 MG/ML (2 ML VIAL) ONE (10:05)
[2022-12-08] MEDS ORDERED: fentaNYL (PF) 50 MCG/ML 2 ML AMP ONE (10:05)
[2022-12-08] MEDS ORDERED: KETOROLAC 15 MG/ML 1 ML VIAL ONE (10:05)
[2022-12-08] MEDS ORDERED: GLYCOPYRROLATE 0.2 MG/ML 2 ML VIAL ONE (10:05)
[2022-12-08] MEDS ORDERED: TRANEXAMIC ACID IN NACL,ISO-OS 1,000 MG/100 ML BAG ONE (10:05)
[2022-12-08] MEDS ORDERED: HYDROmorphone (PF) 1 MG/ML ONE (10:05)
[2022-12-08] MEDS ORDERED: ceFAZolin 1,000 MG in SODIUM CHLORIDE 0.9% 1,000 ML IRRIGATION ONE (10:34)
[2022-12-08] MEDS ORDERED: HYDROcodone/APAP 7.5-325MG 1 EACH TAB PO PRN (11:49)
[2022-12-08] MEDS ORDERED: NALOXONE 0.4 MG/ML 1 ML VIAL IV PRN (11:49)
[2022-12-08] MEDS ORDERED: HYDROmorphone 1 MG/ML 1 ML SYRINGE IVP PRN (11:49)
[2022-12-08] MEDS ORDERED: ONDANSETRON 4 MG/2 ML VIAL IVP PRN (11:49)
[2022-12-08] MEDS ORDERED: HYDROmorphone 0.5 MG/0.5 ML SYRINGE IVP PRN (11:49)
[2022-12-08] MEDS ORDERED: ACETAMINOPHEN TAB 325 MG TAB PO PRN (11:49)
[2022-12-08] MEDS ORDERED: MAGNESIUM HYDROXIDE 2,400 MG/10 ML CUP PO PRN (11:49)
[2022-12-08] MEDS ORDERED: HYDROcodone/APAP 5-325MG 1 EACH TAB PO PRN (11:49)
[2022-12-08] MEDS ORDERED: LACTATED RINGERS 1,000 ML IV ONE (11:57)
--- NOTE | 2022-12-08 12:11 | P.OP ---
Date of Procedure: 12/08/22 Preoperative Diagnosis: Left knee severe tricompartmental osteoarthrosis Postoperative Diagnosis: Same Procedure(s) Performed: Left total knee arthroplastycementedposterior stabilized Implants: Depuy Attune and cemented femoral component, size 6 cemented tibial component, 9 mm articular surface, 38 mm cemented all component. This is a posterior stabilized implant. Anesthesia: [facility] Surgeon: Christopher Ye Outsewer #1: Mukesh Oconnell Assistant #2: Francis Webster Estimated Blood Loss (ml): 50 Pathology: other (Bone fragments) Condition: stable Disposition: PACU Indications for Procedure: The patient is a 62-year-old male presents with progressive left knee pain secondary to osteoarthrosis despite conservative measures. A discussion of the risks and benefits of operative intervention versus continued conservative patient. He opted to proceed with surgery. Operative risks to include infection, neurovascular injury, development of blood clots, fracture, component loosening/failure and need for subsequent procedures was discussed. Informed consent was obtained. Operative Findings: As below Description of Procedure: The patient was brought to the operating room, and after induction of spinal anesthesia the left lower extremity was prepped and draped in a normal fashion. The tourniquet was inflated to 270 mm marker. A longitudinal incision extending 3 finger breaths above the superior pole of patella extending to the medial aspect the tibial tubercle was then made. The skin and subcutaneous tissues were divided sharply. Electrocautery was used for hemostasis. A medial parapatellar arthrotomy was performed. The medial soft tissues to include the superficial and deep portions of the medial collateral ligament were elevated subperiosteally. The patella was everted. A portion of the retropatellar fat pad was excised sharply. The anterior cruciate ligament was sacrificed. Blunt retractors were placed. A starting hole was made in the distal femur 1 cm anterior to the posterior cruciate ligament origin. An intramedullary femoral guide was then inserted planning on 5 valgus distal cut with 9 mm distal resection. The cutting block was pinned in place. The distal cut was then made. The posterior referencing sizing guide was utilized. I felt size 7 was most appropriate. 3 of external rotation was built into the system and verified off the trans-epicondylar axis and the posterior condyles. The cutting block was pinned in place. The anterior, posterior, and chamfer cuts then made. Bone fragments were removed. The intercondylar guide was placed and the notch cut was made with a sagittal saw. The bone block was removed in one fragment. The trial component was then placed. There is good anterior to posterior and medial to lateral fit. The distal peg holes were drilled. The trial component was removed. Attention was then paid towards preparing the proximal tibia. An extra medullary guide was utilized in line with the tibial shaft and second metatarsal distally. I planned on 2 mm resection from the medial compartment. The cutting block was pinned in place. The proximal tibial cut was then made. The bone was removed in one fragment. The remnants of the medial and lateral menisci were excised at the capsular junction with electrocautery. The tibia sized most appropriately at size 6. The trial femoral and tibial components were placed along with a 9 mm articular surface. I was able to obtain full flexion and extension with internal and external rotation. After several flexion and extension cycles, the tibial rotation was marked with electrocautery line with the medial one third of the tibial tubercle. Attention was then paid towards preparing the patella. A patella reamer was utilized taking stem to 14 mm of bone stock. A good flush cut was made. The patella sized most appropriately at 38 mm. The peg holes were drilled. The trial components placed. I had good patellofemoral tracking with no hands technique. The trial components were then removed. The tibia was prepared in the appropriate rotation with appropriate drill and keel punch. The posterior osteophytes were removed with a curved osteotome. The flexion and extension gaps were checked and felt to be symmetric at 9 mm. A trial components were then removed. The bony surfaces were prepared with pulsatile lavage and dried. The tibial component was then cemented place was fully seated. Excess cement was removed. The femoral component cemented place and was fully seated. Excess cement was removed. The trial 9 mm articular surface was placed and the knee was put in full extension. The patella component was cemented place. After the cement had sufficiently hardened, the knee was again taken through a range of motion. Again I was able to obtain full flexion and extension with varus and valgus stress. The trial 9 mm articular surface was removed and the final one inserted. This was fully seated. Care was taken to avoid any soft tissue interposition. Pulsatile lavage was again utilized. The medial parapatellar arthrotomy was closed with #2 Ethibond suture. The tourniquet was deflated with approximately 60 minutes total tourniquet time. Final hemostasis was obtained with the cautery. There was minimal bleeding therefore a deep drain was not pl aced. The subcutaneous tissues were reapproximated with interrupted 2-0 Vicryl sutures. The skin was reapproximated with 3-0 subcuticular strata fix suture. Skin tape and adhesive was applied. A sterile dressing was applied. The patient was awoken from sedation and transferred to recovery room in good condition. Blood loss was estimated at 50 mL. No complications were incurred. Sponge and needle counts were correct at the end of the case. Bogdan CARPENTER and Francis CARPENTER assisted during the major components of this case to include exposure, bone resection, implantation, and closure.
[2022-12-08 12:29] LABS: Glucose,Whole Blood 205 mg/dL (70-110)
[2022-12-08] MEDS ORDERED: ROPIVACAINE 1,100 MG, SODIUM CHLORIDE 0.9% 500 ML 330 ML, EMPTY PAIN BALL 1 EACH MISCELLANE PRN ×2 (12:34)
--- NOTE | 2022-12-08 12:39 | XR ---
EXAMINATION TYPE: XR knee limited LT DATE OF EXAM: 12/08/2022 CLINICAL HISTORY: Left knee pain and arthritis status post total knee replacement. TECHNIQUE: Portable AP and crosstable lateral views of the left knee are obtained immediately postop eratively. COMPARISON: Outside left knee x-ray July 27, 2022 FINDINGS: Metallic hardware from total left knee arthroplasty is seen and appears satisfactory in al ignment and position. There is evidence of recent surgery with diffuse subcutaneous gas and soft tis gonzalez swelling noted. IMPRESSION: METALLIC HARDWARE FROM TOTAL LEFT KNEE ARTHROPLASTY IS SATISFACTORY IN ALIGNMENT.
[2022-12-08] MEDS ORDERED: DEXTROSE 50% SYRINGE 50 ML IVP PRN ×2 (16:50)
[2022-12-08 16:52] LABS: Glucose,Whole Blood 242 mg/dL (70-110)
[2022-12-08] MEDS: INSULIN ASPART (NovoLOG) 100 UNIT/ML VIAL SQ SCH ×2 (18:20→22:04)
--- NOTE | 2022-12-08 18:29 | P.CONS ---
History of Present Illness - Reason for Consult Consult date: 12/08/22 - History of Present Illness History of Presenting Illness: Patient is a very pleasant 62-year-old male with past medical history of osteoarthritis, hypertension, hyperlipidemia, atrial fibrillation on anticoagulation with Xarelto, and diabetes mellitus. He is currently admitted under orthopedic surgery team status post left total knee arthroplasty secondary to severe tricompartmental osteoarthrosis. We have been consulted for medical management throughout patient's hospitalization. Patient was seen and fully evaluated at bedside upon arriving to room 459 from OR. Patient currently reports feeling great. He states postoperative pain as fully controlled and denies having any complaints at this time including headache, lightheadedness, dizziness, chest pain, palpitations, shortness of breath, abdominal pain, nausea, vomiting, or experiencing any focal numbness/tingling/weakness in his extremities. Movement and sensation intact to left lower extremity. Patient denies history of PE or DVT. Patient denies having any postoperative nausea and vomiting and has a dinner without any difficulties. Patient has yet to urinate and postoperative period, we will continue to monitor. Review of systems: Pertinent positives and negatives as discussed in HPI, a complete review of systems was performed and all other systems are negative. Physical exam: Vital signs reviewed and stable. General: Nontoxic, no distress and appears stated age. Derm: Skin warm and dry, normal coloration for ethnicity. Head: Atraumatic, normocephalic and symmetric. Eyes: EOMs intact, no lid lag, and anicteric sclera Mouth: no lip lesions, mucus membranes moist Cardiovascular: regular rate and rhythm with normal S1S2, no murmur, positive posterior tibial pulses bilaterally, and cap refill < 2 seconds. Lungs: Respirations even, regular, and unlabored on room air. Lungs CTA bilaterally, no rhonchi, no rales, no wheezing, and no accessory muscle usage. Abdominal: soft, nontender to palpation, no guarding, no appreciable organomegaly Ext: Movement and sensation intact. No gross muscle atrophy, no edema, no contractures. Postsurgical dressing/ice packs in place to left knee. Neuro: Speech clear, face symmetrical and CN II-XII grossly intact with no noted focal neuro deficits Psych: Alert and oriented to person, place, time, and situation. Appropriate and pleasant affect. Assessment and Plan of Care: Osteoarthrosis Status post left total knee arthroplasty -Pain management, wound/dressing care, weightbearing, and PT/OT per primary admitting orthopedic surgery team. -Patient to resume DVT prophylaxis with Xarelto as he takes daily for atrial fibrillation. Hypertension Hyperlipidemia Atrial fibrillation on anticoagulation with Xarelto -Home medications reviewed and reordered. Patient to continue Xarelto 20 mg daily, atorvastatin 20 mg daily, and lisinopril 2.5 mg daily. Diabetes mellitus with hyperglycemia -Labs reviewed. Glucose elevated at 242. -Glucophage, Actos, and Ozempic at this time and patient placed on glycemic protocol with NovoLog sliding scale. Thank you for allowing us to participate in the care of this pleasant patient. Do not hesitate to contact us with questions. Someone can be reached from the [facility] hospitalist group all hours of the day at [phone] or via [employer]. Patient was seen independently by Nurse Practitioner. This document was prepared using [employer] dictation software. Please allow for errors in principal biostatistician while rare they do occur. Past Medical History Past Medical History: Atrial Fibrillation, Diabetes Mellitus, Hyperlipidemia, Hypertension, Osteoarthritis (OA) Additional Past Medical History / Comment(s): wound rt heel History of Any Multi-Drug Resistant Organisms: None Reported Past Surgical History: Cardiac Ablation, Joint Replacement, Orthopedic Surgery Additional Past Surgical History / Comment(s): cardioversion, rotator cuff surg., hand surg., prior throat surgery for infection yrs. ago, total right knee 2021. Past Anesthesia/Blood Transfusion Reactions: No Reported Reaction Smoking Status: Never smoker - Past Family History Mother Family Medical History: No Reported History Medications and Allergies Home Medications Medication Instructions Recorded Confirmed Type Rivaroxaban [Xarelto] 20 mg PO DAILY 11/02/14 12/08/22 History metFORMIN HCL [Glucophage] 500 mg PO BID 11/02/14 12/08/22 History Atorvastatin [Lipitor] 20 mg PO DAILY 05/09/15 12/08/22 History Pioglitazone [Actos] 45 mg PO DAILY 11/11/21 12/08/22 History Cholecalciferol [Vitamin D3 (25 2,000 unit PO DAILY 12/07/22 12/08/22 History Mcg = 1000 Iu)] Semaglutide [Ozempic] 0.5 mg SQ JAMES 12/07/22 12/08/22 History lisinopriL [Zestril] 2.5 mg PO DAILY 12/07/22 12/08/22 History Allergies Allergy/AdvReac Type Severity Reaction Status Date / Time No Known Allergies Allergy Verified 12/07/22 08:44 Physical Exam Vitals: Vital Signs Temp Pulse Pulse Pulse Resp BP BP 12/08/22 16:14 97.9 F 76 18 129/80 12/08/22 15:28 68 16 110/57 12/08/22 14:28 68 16 130/61 12/08/22 14:00 65 16 140/63 12/08/22 13:30 69 16 133/64 12/08/22 13:00 66 16 134/67 12/08/22 12:46 67 16 143/66 12/08/22 12:23 57 L 16 132/77 12/08/22 12:08 97.7 F 69 12 129/79 12/08/22 09:53 76 16 131/58 12/08/22 09:33 97.0 F L 73 16 140/65 Pulse Ox 12/08/22 16:14 99 12/08/22 15:28 98 12/08/22 14:28 100 12/08/22 14:00 96 12/08/22 13:30 100 12/08/22 13:00 100 12/08/22 12:46 100 12/08/22 12:23 100 12/08/22 12:08 100 12/08/22 09:53 98 12/08/22 09:33 98 Intake and Output 12/08/22 12/08/22 12/08/22 06:59 14:59 22:59 Intake Total 851 Output Total 50 Balance 801 Intake: IV 851 Output: Estimated Blood Loss 50 Other: Weight 105.69 kg Results Labs: Abnormal Lab Results - Last 24 Hours (Table) 12/08/22 12/08/22 Range/Units 09:25 12:27 POC Glucose (mg/dL) 136 H 205 H (70-110) mg/dL
[2022-12-08 20:49] LABS: Glucose,Whole Blood 307 mg/dL (70-110)
[2022-12-08] MEDS ORDERED: SENNOSIDES-DOCUSATE SODIUM 1 EACH TAB PO SCH (21:00)
[2022-12-09 03:30] VITALS: BP 95/54
[2022-12-09] MEDS: LACTATED RINGERS 1,000 ML IV SCH (05:28)
[2022-12-09 06:12] LABS: Glucose,Whole Blood 178 mg/dL (70-110)
[2022-12-09] MEDS: INSULIN ASPART (NovoLOG) 100 UNIT/ML VIAL SQ SCH (06:23)
--- NOTE | 2022-12-09 06:23 | P.ANPRN ---
Procedure Note - Anesthesia - Nerve Block Performed Left Adductor Canal Infusion Time Out Performed: Yes Date of Procedure: 12/08/22 Procedure Start Time: :37 Procedure Stop Time: :49 Location of Patient: PreOp Indication: Acute Post-Operative Pain, Requested by Surgeon Sedation Type: Sedate with meaningful contact maintained Preparation: Sterile Prep, Sterile Dressing Position: Supine Catheter: Indwelling Needle Types: Pajunk Needle Gauge: 21 Ultrasound used to visualize needle placement: Yes Ultrasound used to observe medication spread: Yes Blood Aspirated: No Pain Paresthesia on Injection Noted: No Resistance on Injection: Normal Image Stored and Saved: Yes Events: Uneventful and Well Tolerated (Ropivacaine 0.5% 20 mL plus dexamethasone 4 mg)
--- NOTE | 2022-12-09 06:24 | P.ANPRN ---
Procedure Note - Anesthesia - Nerve Block Performed Left iPack Single Time Out Performed: Yes Date of Procedure: 12/08/22 Procedure Start Time: :50 Procedure Stop Time: :53 Location of Patient: PreOp Indication: Acute Post-Operative Pain, Requested by Surgeon Sedation Type: Sedate with meaningful contact maintained Preparation: Sterile Prep Position: Supine Needle Types: Pajunk Needle Gauge: 21 Ultrasound used to visualize needle placement: Yes Ultrasound used to observe medication spread: Yes Blood Aspirated: No Pain Paresthesia on Injection Noted: No Resistance on Injection: Normal Image Stored and Saved: Yes Events: Uneventful and Well Tolerated (Ropivacaine 0.5% 20 mL plus dexamethasone 4 mg)
--- NOTE | 2022-12-09 06:42 | P.PN ---
Progress Note - Text 12/09/22 622am 62-year-old male status post total knee replacement by Dr. Ye. Patient has an On-Q pump for postop pain control with the solution running at 8 mL an hour with a VAS of 0. Dressing clean dry and intact. Plan to continue On-Q pump infusion
[2022-12-09 08:57] VITALS: PULSE 74; RESP 18; TEMP 97.5
[2022-12-09] MEDS ORDERED: RIVAROXABAN 20 MG TAB PO SCH (09:00)
[2022-12-09] MEDS ORDERED: CHOLECALCIFEROL 25 MCG (1000 IU) TABLET PO SCH (09:00)
[2022-12-09] MEDS ORDERED: ATORVASTATIN 20 MG TAB PO SCH (09:00)
--- NOTE | 2022-12-09 09:54 | P.DS ---
Providers Date of admission: 12/08/2022 Expected date of discharge: 12/09/22 Attending physician: Christopher Ye Consults: 12/08/22 11:51 Consult Physician Routine Consulting Provider: Dahlia Mcmahan Consult Reason/Comments: Medical Management Do you want consulting provider notified?: Yes Primary care physician: Alejandro Gee Debra [place] Hospital Course: Date of admission: 12/08/2022 Date of discharge: 12/09/2022 Admission diagnosis: Left knee osteoarthritis Discharge diagnosis: same Attending physician: Dr. Ye Surgical procedures: left total knee arthroplasty Brief history: Patient is a 62-year-old male with a history of progressive primary left knee osteoarthritis. At this point patient has failed conservative treatment measures and has opted to proceed with a elective left total knee arthroplasty. Hospital course: Details of patient's surgery can be found in operative report. Patient tolerated the procedure well and was subsequently transported to ortho pedic floor. Patient's orthopeidc and medical care was provided daily. Patient had daily laboratory tests performed for evaluation of overall blood counts. Patient had daily physical therapy to include strengthening range of motion as well as education with walker ambulation. Patient was treated with Xarelto for their postoperative DVT prophylaxis during their inpatient stay. Patient was noted to have a relatively uneventful postoperative course. Patient reported satisfactory pain control with oral pain medications by postoperative day 1. Patient showed satisfactory progress with physical therapy. Patient moved steadily through the program and had no difficulty meeting the goals by postoperative day 1. Given patient's otherwise satisfactory course and having met physical therapy goals, plan is to discharge patient home with health services on postoperative day 1. Discharge condition/disposition: Patient will be discharged with health services in stable condition. Discharge medications: Instructions are given on resumption of patient's normal daily medications per primary care recommendation, in addition patient will be prescribed Hillman; senna. Resume Xarelto once home. Discharge instructions: 1. Wound care and infection precautions, keep incision dry and covered while showering, no lotions, creams, moisturizers. No soaking, tubs, pools, hottubs. Do not scrub over the incision. 2. Weight-bear as tolerated with walker / cane until follow-up. 3. Ice and elevate when necessary. Do not exceed 20 minutes per hour with ice pack. 4. Utilize compression sleeve until seen at first follow up appointment. 5. Visiting nursing care. 6. Home physical therapy including home CPM. 7. Pain meds and anticoagulants per prescription. 8. Pain medication has potential to cause constipation. Increase oral fluid and fiber intake. Contact primary care provider if you have not had a bowel movement within 48 hours after discharge 9. No anti-inflammatory medication until discussed at first post operative visit, this including Motrin, Aleve, Mobic, Diclofenac. 10. Follow up in office at 2 weeks postop with Bogdan Oconnell PA-C / Francis Webster PA-C 11. Follow up with your primary care doctor 7-10 days after discharge. 12. Contact [facility] with any questions, . Keep incision clean, dry, intact. While showering, cover fusion tape with Saran wrap. Keep fusion tape on until follow-up appointment in office at 2 weeks. Assessment: Left knee osteoarthritis Procedures: Left total knee arthroplasty Patient Condition at Discharge: Good Plan - Discharge Summary Discharge Rx Participant: Yes New Discharge Prescriptions: New Sennosides/Docusate Sodium [Senna Plus 8.6-50 mg Softgel] 1 each PO DAILY #20 capsule HYDROcodone/APAP 7.5-325MG [Hillman 7.5] 1 each PO Q6HR PRN #28 tab PRN Reason: Pain No Action metFORMIN HCL [Glucophage] 500 mg PO BID Rivaroxaban [Xarelto] 20 mg PO DAILY Atorvastatin [Lipitor] 20 mg PO DAILY Cholecalciferol [Vitamin D3 (25 Mcg = 1000 Iu)] 2,000 unit PO DAILY Pioglitazone [Actos] 45 mg PO DAILY lisinopriL [Zestril] 2.5 mg PO DAILY Semaglutide [Ozempic] 0.5 mg SQ JAMES Discharge Medication List Rivaroxaban [Xarelto] 20 mg PO DAILY 11/02/14 [History] metFORMIN HCL [Glucophage] 500 mg PO BID 11/02/14 [History] Atorvastatin [Lipitor] 20 mg PO DAILY 05/09/15 [History] Pioglitazone [Actos] 45 mg PO DAILY 11/11/21 [History] Cholecalciferol [Vitamin D3 (25 Mcg = 1000 Iu)] 2,000 unit PO DAILY 12/07/22 [History] Semaglutide [Ozempic] 0.5 mg SQ JAMES 12/07/22 [History] lisinopriL [Zestril] 2.5 mg PO DAILY 12/07/22 [History] HYDROcodone/APAP 7.5-325MG [Hillman 7.5] 1 each PO Q6HR PRN #28 tab 12/09/22 [Rx] Sennosides/Docusate Sodium [Senna Plus 8.6-50 mg Softgel] 1 each PO DAILY #20 capsule 12/09/22 [Rx] Follow up Appointment(s)/Referral(s): Francis Webster, TARA [PHYSICIAN INSTALLATION SPECIALIST] - 2 Weeks Activity/Diet/Wound Care/Special Instructions: Discharge instructions: 1. Wound care and infection precautions, keep incision dry and covered while showering, no lotions, creams, moisturizers. No soaking, tubs, pools, hottubs. Do not scrub over the incision. 2. Weight-bear as tolerated with walker / cane until follow-up. 3. Ice and elevate when necessary. Do not exceed 20 minutes per hour with ice pack. 4. Utilize compression sleeve until seen at first follow up appointment. 5. Visiting nursing care. 6. Home physical therapy including home CPM. 7. Pain meds and anticoagulants per prescription. 8. Pain medication has potential to cause constipation. Increase oral fluid and fiber intake. Contact primary care provider if you have not had a bowel movement within 48 hours after discharge 9. No anti-inflammatory medication until discussed at first post operative visit, this including Motrin, Aleve, Mobic, Diclofenac. 10. Follow up in office at 2 weeks postop with Bogdan Oconnell PA-C / Francis Webster PA-C 11. Follow up with your primary care doctor 7-10 days after discharge. 12. Contact [facility] with any questions, . Keep incision clean, dry, intact. While showering, cover fusion tape with Saran wrap. Keep fusion tape on until follow-up appointment in office at 2 weeks. Discharge Disposition: HOME WITH HOME HEALTH SERVICES
--- NOTE | 2022-12-09 10:00 | P.PN ---
Subjective Progress Note Date: 12/09/22 Principal diagnosis: Left knee osteoarthritis Patient was seen at bedside this morning sitting up in chair with legs elevated. Patient says he did work with physical therapy this morning already and walk down the garcia and up-and-down says. Patient says he is looking forward to going home later today. Patient says he did have a bowel movement last night. Patient says she has urinated several times since surgery yesterday. Patient says he does have a walker for home. Patient says he is having minimal pain at this time. Patient denies chest pain, fever, shortness of breath, nausea, vomiting, change in vision, loss of bowel/bladder control. Objective - Vital Signs Vital signs: Vital Signs Temp 97.5 F L 12/09/22 07:08 Pulse 74 12/09/22 07:08 Resp 18 12/09/22 07:08 BP 95/54 12/09/22 01:41 Pulse Ox 98 12/09/22 07:08 FiO2 Intake & Output 12/08/22 12/09/22 12/09/22 18:59 06:59 18:59 Intake Total 851 1230 Output Total 50 Balance 801 1230 Weight 105.69 kg Intake: IV 851 Intake, IV Titration 270 Amount Lactated Ringers 1,000 ml 220 @ 20 mls/hr IV .Q24H [facility] Rx#:[id number] ceFAZolin 2 gm In Sodium 50 Chloride 0.9% 50 ml @ 100 mls/hr IVPB Q8H [facility] Rx#: [id number] Oral 960 Output: Estimated Blood Loss 50 Other: Voiding Method Toilet # Voids 2 # Bowel Movements 1 - Exam Left knee: Incision is clean, dry, and intact. The exofin fusion tape is in good condition. There is minimal soft tissue swelling and ecchymosis surrounding the medial and lateral aspects of the incision. Calf is soft, no tenderness with palpation. Plantar flexion, dorsiflexion, EHL, FHL are intact. Sensory exam to light touch throughout the extremity is intact, dorsal pedis pulses 2+. - Labs Labs: Abnormal Lab Results - Last 24 Hours (Table) 12/08/22 12/08/22 12/08/22 Range/Units 12:27 16:51 19:02 POC Glucose (mg/dL) 205 H 242 H (70-110) mg/dL Hemoglobin A1c 7.8 H (0.0-6.0) % 12/08/22 12/09/22 Range/Units 20:45 06:09 POC Glucose (mg/dL) 307 H 178 H (70-110) mg/dL Hemoglobin A1c (0.0-6.0) % Assessment and Plan Assessment: 1. Left knee osteoarthritis - Postoperative day 1 status post left total knee arthroplasty Plan: 1. Left knee osteoarthritis - left total knee arthroplasty was performed yesterday, 12/08/2022. Patient stable at bedside this morning. Patient does have a walker home. Patient did do well with physical therapy. Discharge home today with health services. 2. Appreciate medical management 3. Pain management - [place] 4. GI prophylaxis - senna 5. DVT prophylaxis - Xarelto. resume Xarelto daily once home 6. PT/OT - weightbearing as tolerated with walker as necessary 7. Encourage incentive spirometer use 8. Discharge planning - plan for home with health services today. Time with Patient: Less than 30
--- NOTE | 2022-12-09 11:01 | P.PN ---
Subjective Progress Note Date: 12/09/22 Subjective: Patient seen and examined at bedside. No acute events overnight. He claims that he has mild tenderness in his left knee post surgery, but denies any chest pain, shortness of breath, abdominal pain, nausea, vomiting, diarrhea, constipation, or urinary complaints. Pertinent positives and negatives as discussed above, a complete review of systems was performed and all other systems are negative. Vitals Signs Reviewed. General: nontoxic, no distress, appears at stated age Derm: warm, dry, right knee dressing appears clean, dry, and intact. Head: atraumatic, normocephalic, symmetric Eyes: EOMI, no lid lag, anicteric sclera Mouth: no lip lesion, mucus membranes moist Cardiovascular: S1S2 reg, no murmur Lungs: CTA bilateral, no rhonchi, no rales , no accessory muscle use Abdominal: soft, nontender to palpation, no guarding, no appreciable organomegaly Ext: no gross muscle atrophy, no edema, no contractures Neuro: CN II-XI grossly intact, no focal neuro deficits Psych: Alert, oriented, appropriate affect Data Reviewed Today: Pertinent Labs: A1c 7.8, blood glucose level ranged between 178-307 Assessment and Plan: Dxo-[id number]-[id number] diabetes mellitus with hyperglycemia, A1c 7.8 Hypertension Dyslipidemia Atrial fibrillation on anticoagulation Status post left total knee arthroplasty Osteoarthrosis -Patient on sliding scale insulin while in the hospital -Surgery note reviewed: Discharge today -Patient to resume his home antidiabetic medications as well as other home medications reviewed and reconciled -He will follow-up with his primary care physician within one month, already has an appointment scheduled Patient is otherwise medically optimized for discharge home. Thank you for allowing us to participate in the care of this pleasant patient. Do not hesitate to contact us with questions. Someone can be reached from the [facility] [place] hospitalist group all hours of the day at [phone] or via [employer]. Objective - Vital Signs Vital signs: Vital Signs Temp 97.5 F L 12/09/22 07:08 Pulse 74 12/09/22 08:00 Resp 18 12/09/22 08:00 BP 95/54 12/09/22 01:41 Pulse Ox 98 12/09/22 07:08 FiO2 Intake & Output 12/08/22 12/09/22 12/09/22 18:59 06:59 18:59 Intake Total 851 1230 Output Total 50 Balance 801 1230 Weight 105.69 kg Intake: IV 851 Intake, IV Titration 270 Amount Lactated Ringers 1,000 ml 220 @ 20 mls/hr IV .Q24H [facility] Rx#:[id number] ceFAZolin 2 gm In Sodium 50 Chloride 0.9% 50 ml @ 100 mls/hr IVPB Q8H [facility] Rx#: [id number] Oral 960 Output: Estimated Blood Loss 50 Other: Voiding Method Toilet Toilet # Voids 2 # Bowel Movements 1 - Labs Labs: Abnormal Lab Results - Last 24 Hours (Table) 12/08/22 12/08/22 12/08/22 Range/Units 12:27 16:51 19:02 POC Glucose (mg/dL) 205 H 242 H (70-110) mg/dL Hemoglobin A1c 7.8 H (0.0-6.0) % 12/08/22 12/09/22 Range/Units 20:45 06:09 POC Glucose (mg/dL) 307 H 178 H (70-110) mg/dL Hemoglobin A1c (0.0-6.0) %
== END 2022-12-09 13:04 | disposition home health service (06) ==
LOC: OR 08:17 → 4SSUR 12:00 → OR 12-09 13:04
PROVIDERS: ATTEND Orthopaedic Surgery
DX: M17.12 Unilateral primary osteoarthritis, left knee (principal); I48.91 Unspecified atrial fibrillation; E11.9 Type 2 diabetes mellitus without complications; I10 Essential (primary) hypertension; E78.5 Hyperlipidemia, unspecified; Z96.651 Presence of right artificial knee joint; Z98.890 Other specified postprocedural states; Z79.01 Long term (current) use of anticoagulants; Z79.84 Long term (current) use of oral hypoglycemic drugs; Z79.899 Other long term (current) drug therapy; Z86.79 Personal history of other diseases of the circulatory system; G89.18 Other acute postprocedural pain
CPT/HCPCS: 27447; 97161; 64999; 64448; 76942; 88300; 83036; 73560; C1713 ×2; C1776; C1751; J2250; J0330; J1100; J2710; J0690 ×3; J2405; J3010; J1170; J2795; J1885; J2704; J2001

== ENCOUNTER 2024-02-23 12:19 | Inpatient (IN) | payer BC ==
[2024-02-23] MEDS ORDERED: NALOXONE 0.4 MG/ML 1 ML VIAL IV PRN (15:00)
[2024-02-23] MEDS ORDERED: ACETAMINOPHEN TAB 325 MG TAB PO PRN (15:00)
[2024-02-23] MEDS ORDERED: ONDANSETRON 4 MG/2 ML VIAL IVP PRN (15:00)
[2024-02-23 16:59] LABS: Glucose,Whole Blood 194 mg/dL (70-110)
[2024-02-23 18:02] LABS: Basophils % (A) 0 %; Eosinophils # (A) 0.1 k/uL (0-0.7); Eosinophils % (A) 1 %; HGB 11.9 gm/dL (13.0-17.5); Lymphocytes # (A) 1.2 k/uL (1.0-4.8); Lymphocytes % (A) 6 %; MCH 32.2 pg (25.0-35.0); MCHC 33.9 g/dL (31.0-37.0); Mean Platelet Volume 7.6; Monocytes # (A) 0.9 k/uL (0-1.0); Monocytes % (A) 5 %; Neutrophils # (A) 16.8 k/uL (1.3-7.7); Neutrophils % (A) 88 %; Platelet Count 345 k/uL (150-450); RBC 3.69 m/uL (4.30-5.90); RDW 13.3 % (11.5-15.5); WBC 19.2 k/uL (3.8-10.6)
[2024-02-23 18:14] LABS: ALT 21 U/L (4-49); AST 25 U/L (17-59); African American GFR (CKD) 72 (>60 ml/min/1.73 sqM); Albumin 3.4 g/dL (3.5-5.0); Alkaline Phosphatase 94 U/L (38-126); Anion Gap 7 mmol/L; Blood Urea Nitrogen 23 mg/dL (9-20); Calcium 8.4 mg/dL (8.4-10.2); Carbon Dioxide 21 mmol/L (22-30); Chloride 105 mmol/L (98-107); Glucose 193 mg/dL (74-99); Magnesium 1.9 mg/dL (1.6-2.3); Non-African American GFR(CKD) 62 (>60 ml/min/1.73 sqM); Potassium 4.6 mmol/L (3.5-5.1); Sodium 133 mmol/L (137-145); Total Bilirubin 0.8 mg/dL (0.2-1.3); Total Protein 6.3 g/dL (6.3-8.2)
[2024-02-23] MEDS ORDERED: LORazepam 0.5 MG TAB PO PRN (18:43)
[2024-02-23] MEDS ORDERED: MORPHINE SULFATE 4 MG/ML SYRINGE IVP PRN (18:43)
[2024-02-23 20:09] LABS: Glucose,Whole Blood 187 mg/dL (70-110)
[2024-02-23] MEDS: ATORVASTATIN 20 MG TAB PO SCH (20:10)
[2024-02-23] MEDS: METOPROLOL TARTRATE 25 MG TAB PO SCH (20:10)
[2024-02-24 06:25] LABS: Glucose,Whole Blood 153 mg/dL (70-110)
--- NOTE | 2024-02-24 07:11 | P.GSCN ---
History of Present Illness Consult date: 02/24/24 History of present illness: 63 yo male admitted for a uti. the patient was in [facility]. Had apparent evidence of a uti. He had a ct scan that showed a bifid renal pelvis on the right with a stone in the upper pole pelvis with some mild hydro.The patient will was at [facility] for 36 hours. He was on IV antibiotics. He is transferred here because there is no urologic care. He has felt somewhat weak and poorly for a couple weeks. There's been no fever or chills. There is no flank pain. His urinalysis at [facility] suggested the urine infection. His initial white count was 22,000 it is 19,000 yesterday at [facility]. He is never had stones. Denies fever or chills. He has no hematuria. Review of Systems All systems: negative - Constitutional Denies fever, Denies weight loss - EENT Eyes: denies blurred vision Ears, nose, mouth and throat: Denies dysphagia - Cardiovascular Denies chest pain, Denies shortness of breath - Respiratory Denies cough, Denies 7 - Gastrointestinal Reports as per HPI - Genitourinary Denies dysuria, Denies hematuria - Integumentary Denies rash, Denies unusual bruising - Neurological Denies headaches, Denies syncope - Hematologic/Lymphatic Denies easy bleeding, Denies easy bruising Past Medical History Past Medical History: Atrial Fibrillation, Diabetes Mellitus, Hyperlipidemia, Skin Disorder Additional Past Medical History / Comment(s): healed wound rt heel History of Any Multi-Drug Resistant Organisms: None Reported Past Surgical History: Cardiac Ablation, Orthopedic Surgery Additional Past Surgical History / Comment(s): cardioversion, rotator cuff surg., hand surg., throat surgery, total right knee 2021. Past Anesthesia/Blood Transfusion Reactions: No Reported Reaction Smoking Status: Vaper Past Alcohol Use History: None Reported Past Drug Use History: None Reported - Past Family History Mother Family Medical History: No Reported History Medications and Allergies Home Medications Medication Instructions Recorded Confirmed Type Rivaroxaban [Xarelto] 20 mg PO DAILY 11/02/14 02/23/24 History Atorvastatin [Lipitor] 20 mg PO DAILY 05/09/15 02/23/24 History lisinopriL [Zestril] 2.5 mg PO DAILY 12/07/22 02/23/24 History Dapagliflozin Propanediol [Farxiga] 10 mg PO DAILY 02/23/24 02/23/24 History Semaglutide [Ozempic] 2 mg SQ WE 02/23/24 02/23/24 History Allergies Allergy/AdvReac Type Severity Reaction Status Date / Time No Known Allergies Allergy Verified 02/23/24 18:01 Surgical - Exam Vital Signs Temp Pulse Resp BP Pulse Ox 97.0 F L 83 16 129/58 99 02/23/24 16:45 02/23/24 16:45 02/23/24 16:45 02/23/24 16:45 02/23/24 16:45 - General well developed, well nourished, no distress - Eyes normal ocular movement, no icteric - ENT no hearing loss, no congestion - Neck no masses, trachea midline - Respiratory normal respiratory effort, clear to auscultation - Abdomen Abdomen: soft, non tender, no guarding, no rigid, no rebound - Integumentary no rash, no abnormal pigmentation - Neurologic no disoriented, no combative - Psychiatric oriented to time, oriented to person, oriented to place, speech is normal, memory intact Results - Labs 02/23/24 17:33 02/23/24 17:33 Abnormal Lab Results - Last 24 Hours (Table) 02/23/24 02/23/24 02/23/24 Range/Units 16:58 17:33 17:33 WBC 19.2 H (3.8-10.6) k/uL RBC 3.69 L (4.30-5.90) m/uL Hgb 11.9 L (13.0-17.5) gm/dL Hct 35.0 L (39.0-53.0) % Neutrophils # 16.8 H (1.3-7.7) k/uL Sodium 133 L (137-145) mmol/L Carbon Dioxide 21 L (22-30) mmol/L BUN 23 H (9-20) mg/dL Glucose 193 H (74-99) mg/dL POC Glucose (mg/dL) 194 H (70-110) mg/dL Albumin 3.4 L (3.5-5.0) g/dL 02/23/24 Range/Units 20:07 WBC (3.8-10.6) k/uL RBC (4.30-5.90) m/uL Hgb (13.0-17.5) gm/dL Hct (39.0-53.0) % Neutrophils # (1.3-7.7) k/uL Sodium (137-145) mmol/L Carbon Dioxide (22-30) mmol/L BUN (9-20) mg/dL Glucose (74-99) mg/dL POC Glucose (mg/dL) 187 H (70-110) mg/dL Albumin (3.5-5.0) g/dL Diabetes panel 02/23/24 Range/Units 17:33 Sodium 133 L (137-145) mmol/L Potassium 4.6 (3.5-5.1) mmol/L Chloride 105 (98-107) mmol/L Carbon Dioxide 21 L (22-30) mmol/L BUN 23 H (9-20) mg/dL Creatinine 1.24 (0.66-1.25) mg/dL Glucose 193 H (74-99) mg/dL Calcium 8.4 (8.4-10.2) mg/dL AST 25 (17-59) U/L ALT 21 (4-49) U/L Alkaline Phosphatase 94 (38-126) U/L Total Protein 6.3 (6.3-8.2) g/dL Albumin 3.4 L (3.5-5.0) g/dL Calcium panel 02/23/24 Range/Units 17:33 Calcium 8.4 (8.4-10.2) mg/dL Albumin 3.4 L (3.5-5.0) g/dL Pituitary panel 02/23/24 Range/Units 17:33 Sodium 133 L (137-145) mmol/L Potassium 4.6 (3.5-5.1) mmol/L Chloride 105 (98-107) mmol/L Carbon Dioxide 21 L (22-30) mmol/L BUN 23 H (9-20) mg/dL Creatinine 1.24 (0.66-1.25) mg/dL Glucose 193 H (74-99) mg/dL Calcium 8.4 (8.4-10.2) mg/dL Adrenal panel 02/23/24 Range/Units 17:33 Sodium 133 L (137-145) mmol/L Potassium 4.6 (3.5-5.1) mmol/L Chloride 105 (98-107) mmol/L Carbon Dioxide 21 L (22-30) mmol/L BUN 23 H (9-20) mg/dL Creatinine 1.24 (0.66-1.25) mg/dL Glucose 193 H (74-99) mg/dL Calcium 8.4 (8.4-10.2) mg/dL Total Bilirubin 0.8 (0.2-1.3) mg/dL AST 25 (17-59) U/L ALT 21 (4-49) U/L Alkaline Phosphatase 94 (38-126) U/L Total Protein 6.3 (6.3-8.2) g/dL Albumin 3.4 L (3.5-5.0) g/dL - Imaging CT scan - abdomen: report reviewed, image reviewed CT scan - pelvis: report reviewed, image reviewed Assessment and Plan Assessment: impression: Urinary tract infection with sepsis. Right renal stone, large, bifid renal pelvis. Recommendations: I recommended to continue with IV antibiotics and once the infection has been treated then he will need treatment surgically for the kidney stone. At this point in time I do not think and place a stent I will follow with you.
[2024-02-24] MEDS: SODIUM CHLORIDE 0.45% 1,000 ML IV SCH (08:55)
[2024-02-24 11:32] LABS: Glucose,Whole Blood 137 mg/dL (70-110)
[2024-02-24] MEDS ORDERED: DEXTROSE 50% SYRINGE 50 ML IVP PRN ×2 (13:37)
[2024-02-24 16:34] LABS: Glucose,Whole Blood 149 mg/dL (70-110)
[2024-02-24] MEDS: INSULIN ASPART (NovoLOG) 100 UNIT/ML VIAL SQ SCH (16:44)
[2024-02-24] MEDS: RIVAROXABAN 15 MG TAB PO SCH (16:55)
[2024-02-24 19:48] LABS: Glucose,Whole Blood 250 mg/dL (70-110)
--- NOTE | 2024-02-24 21:15 | P.HPIM ---
History of Present Illness H&P Date: 02/24/24 This is a pleasant 63-year-old male with medical history significant for diabetes mellitus, hypertension, hyperlipidemia, atrial fibrillation, prior cardioversion. Patient was initially admitted over to [facility] with concern for urinary tract infection and sepsis was found to have a nonobstructing stone and was brought over to [facility] for urological evaluation. Patient's abdominal pelvis CT over at [facility] showed a bifid renal pelvis on the right with a stone in the upper pole of the pelvis with some mild hydronephrosis. He was treated with IV antibiotics and brought over to [facility]. Patient is not currently having any fever or chills he denies ever having any flank pain or abdominal pain. He had repeat blood work here showing a white blood cell count of 19.2 a hemoglobin of 11.9, sodium of 133, BUN of 23, creatinine of 1.24. He has been resumed on empiric antibiotics with IV ceftriaxone. Urology at this time is recommending antibiotics and treatment of the sepsis before considering this patient for a stone removal. REVIEW OF SYSTEMS: CONSTITUTIONAL: No fever, no malaise, no fatigue. HEENT: No recent visual problems or hearing problems. Denied any sore throat. CARDIOVASCULAR: No chest pain, orthopnea, PND, no palpitations, no syncope. PULMONARY: No shortness of breath, no cough, no hemoptysis. GASTROINTESTINAL: No diarrhea, no nausea, no vomiting, no abdominal pain. NEUROLOGICAL: No headaches, no weakness, no numbness. HEMATOLOGICAL: Denies any bleeding or petechiae. GENITOURINARY: Denies any burning micturition, frequency, or urgency. MUSCULOSKELETAL/RHEUMATOLOGICAL: Denies any joint pain, swelling, or any muscle pain. ENDOCRINE: Denies any polyuria or polydipsia. The rest of the 14-point review of systems is negative. PHYSICAL EXAMINATION: GENERAL: The patient is alert and oriented x3, not in any acute distress. Well developed, well nourished. HEENT: Pupils are round and equally reacting to light. EOMI. No scleral icterus. No conjunctival pallor. Normocephalic, atraumatic. No pharyngeal erythema. No thyromegaly. CARDIOVASCULAR: S1 and S2 present. No murmurs, rubs, or gallops. PULMONARY: Chest is clear to auscultation, no wheezing or crackles. ABDOMEN: Soft, nontender, nondistended, normoactive bowel sounds. No palpable organomegaly. MUSCULOSKELETAL: No joint swelling or deformity. EXTREMITIES: No cyanosis, clubbing, or pedal edema. NEUROLOGICAL: Gross neurological examination did not reveal any focal deficits. SKIN: No rashes. Assessment and Plan Acute urinary tract infection and sepsis on IV ceftriaxone E.Coli bacteremia found at [facility]; patient will be continued on IV ceftriaxone repeat blood cultures taking and ID consultation. Patient is pending microsensitivities from outside hospital. Nephrolithiasis and mild hydronephrosis Acute kidney injury from ATN and sepsis; renal function is normalizing patient continues on IV fluids. Continue to monitor for urinary retention with PVR. Leukocytosis Hx of paroxysmal atrial fibrillation anticoagulated with xarelto Diabetes Mellitus type 2 continue accuchecks achs and sliding scale insulin Hyperlipidemia on statin therapy Prior cardiac ablation and cardioversion for the a.fib Hx of tobacco use GI prophylaxis DVT prophylaxis Full code The impression and plan of care has been dictated by Myriam Diaz, Nurse Practitioner as directed. Dr. Gulshan MD I have performed a history and physical examination and medical decision making of this patient, discussed the same with the dictator, and agree with the dictators assessment and plan as written, documented as a scribe. Based on total visit time, I have performed more than 50% of this visit. Past Medical History Past Medical History: Atrial Fibrillation, Diabetes Mellitus, Hyperlipidemia, Skin Disorder Additional Past Medical History / Comment(s): healed wound rt heel History of Any Multi-Drug Resistant Organisms: None Reported Past Surgical History: Cardiac Ablation, Orthopedic Surgery Additional Past Surgical History / Comment(s): cardioversion, rotator cuff surg., hand surg., throat surgery, total right knee 2021. Past Anesthesia/Blood Transfusion Reactions: No Reported Reaction Smoking Status: Vaper Past Alcohol Use History: None Reported Past Drug Use History: None Reported - Past Family History Mother Family Medical History: No Reported History Medications and Allergies Home Medications Medication Instructions Recorded Confirmed Type Rivaroxaban [Xarelto] 20 mg PO DAILY 11/02/14 02/23/24 History Atorvastatin [Lipitor] 20 mg PO DAILY 05/09/15 02/23/24 History lisinopriL [Zestril] 2.5 mg PO DAILY 12/07/22 02/23/24 History Dapagliflozin Propanediol [Farxiga] 10 mg PO DAILY 02/23/24 02/23/24 History Semaglutide [Ozempic] 2 mg SQ WE 02/23/24 02/23/24 History Allergies Allergy/AdvReac Type Severity Reaction Status Date / Time No Known Allergies Allergy Verified 02/23/24 18:01 Physical Exam Vitals: Vital Signs Temp Pulse Resp BP Pulse Ox 02/24/24 04:00 98.9 F 80 16 125/72 98 02/24/24 02:00 77 14 02/23/24 23:48 97.1 F L 88 16 124/56 99 02/23/24 20:00 97.3 F L 78 16 126/60 99 02/23/24 16:45 97.0 F L 83 16 129/58 99 Intake and Output 02/23/24 02/24/24 02/24/24 22:59 06:59 14:59 Intake Total 180 Balance 180 Intake: Oral 180 Other: # Voids 0 2 Weight 86.183 kg Results CBC & Chem 7: 02/23/24 17:33 02/23/24 17:33 Labs: Abnormal Lab Results - Last 24 Hours (Table) 02/23/24 02/23/24 02/23/24 Range/Units 16:58 17:33 17:33 WBC 19.2 H (3.8-10.6) k/uL RBC 3.69 L (4.30-5.90) m/uL Hgb 11.9 L (13.0-17.5) gm/dL Hct 35.0 L (39.0-53.0) % Neutrophils # 16.8 H (1.3-7.7) k/uL Sodium 133 L (137-145) mmol/L Carbon Dioxide 21 L (22-30) mmol/L BUN 23 H (9-20) mg/dL Glucose 193 H (74-99) mg/dL POC Glucose (mg/dL) 194 H (70-110) mg/dL Albumin 3.4 L (3.5-5.0) g/dL 02/23/24 02/24/24 02/24/24 Range/Units 20:07 06:23 11:31 WBC (3.8-10.6) k/uL RBC (4.30-5.90) m/uL Hgb (13.0-17.5) gm/dL Hct (39.0-53.0) % Neutrophils # (1.3-7.7) k/uL Sodium (137-145) mmol/L Carbon Dioxide (22-30) mmol/L BUN (9-20) mg/dL Glucose (74-99) mg/dL POC Glucose (mg/dL) 187 H 153 H 137 H (70-110) mg/dL Albumin (3.5-5.0) g/dL Thrombosis Risk Factor Assmnt - Choose All That Apply Each Risk Factor Represents 2 Points: Age 61-74 years Thrombosis Risk Factor Assessment Total Risk Factor Score: 2 Thrombosis Risk Factor Assessment Level: Low Risk Assessment and Plan Time with Patient: Greater than 30
[2024-02-25 06:13] LABS: Glucose,Whole Blood 174 mg/dL (70-110)
--- NOTE | 2024-02-25 08:13 | P.PN ---
Subjective Progress Note Date: 02/25/24 The patient was transferred from [facility] to [facility] for urologic consultation. The patient had a urinary tract infection with sepsis. He also has a bifid renal pelvis with a left upper pole renal pelvic calyceal stone. He is asymptomatic. Objective - Vital Signs Vital signs: Vital Signs Temp 97.7 F 02/24/24 20:00 Pulse 68 02/25/24 04:00 Resp 16 02/25/24 04:00 BP 124/58 02/25/24 04:00 Pulse Ox 98 02/25/24 04:00 FiO2 Intake & Output 02/24/24 02/25/24 02/25/24 18:59 06:59 18:59 Intake Total 540 Balance 540 Intake: Oral 540 Other: # Voids 2 1 - Labs CBC & Chem 7: 02/23/24 17:33 02/23/24 17:33 Labs: Abnormal Lab Results - Last 24 Hours (Table) 02/24/24 02/24/24 02/24/24 Range/Units 11:31 16:33 19:46 POC Glucose (mg/dL) 137 H 149 H 250 H (70-110) mg/dL 02/25/24 Range/Units 06:12 POC Glucose (mg/dL) 174 H (70-110) mg/dL Microbiology - Last 24 Hours (Table) 02/23/24 17:33 Blood Culture - Preliminary Blood Assessment and Plan Assessment: Impression:Right pyelonephritis, right renal stone Recommendations: The patient should continue on antibiotics. Once the cultures from [facility] back he can go home on oral antibiotics. I like to treat him for at least 2 weeks before intervention would be Performed.. Most likely to be a ureteroscopy or percutaneous this is been discussed
[2024-02-25 10:38] LABS: Basophils % (A) 0 %; Eosinophils # (A) 0.1 k/uL (0-0.7); Eosinophils % (A) 1 %; HCT 30.3 % (39.0-53.0); HGB 10.2 gm/dL (13.0-17.5); Lymphocytes # (A) 0.9 k/uL (1.0-4.8); Lymphocytes % (A) 9 %; MCH 32.3 pg (25.0-35.0); MCHC 33.6 g/dL (31.0-37.0); Mean Platelet Volume 8.7; Monocytes # (A) 0.7 k/uL (0-1.0); Monocytes % (A) 7 %; Neutrophils # (A) 8.2 k/uL (1.3-7.7); Neutrophils % (A) 81 %; Platelet Count 361 k/uL (150-450); RBC 3.15 m/uL (4.30-5.90); RDW 12.8 % (11.5-15.5); WBC 10.1 k/uL (3.8-10.6)
[2024-02-25 11:02] LABS: African American GFR (CKD) 89 (>60 ml/min/1.73 sqM); Anion Gap 6 mmol/L; Blood Urea Nitrogen 25 mg/dL (9-20); Calcium 8.4 mg/dL (8.4-10.2); Carbon Dioxide 19 mmol/L (22-30); Chloride 106 mmol/L (98-107); Glucose 214 mg/dL (74-99); Magnesium 1.7 mg/dL (1.6-2.3); Non-African American GFR(CKD) 77 (>60 ml/min/1.73 sqM); Potassium 4.6 mmol/L (3.5-5.1); Sodium 131 mmol/L (137-145)
[2024-02-25 11:51] LABS: Glucose,Whole Blood 201 mg/dL (70-110)
[2024-02-25] MEDS ORDERED: Magnesium Replacement Protocol 1 EACH MISC MISCELLANE PRN (12:52)
[2024-02-25] MEDS: MAGNESIUM SULFATE-D5W PMX 1 GM in DEXTROSE/WATER 1 100ML.BAG IVPB ONE (13:02)
[2024-02-25 22:12] LABS: Glucose,Whole Blood 226 mg/dL (70-110)
--- NOTE | 2024-02-25 22:33 | P.CONS ---
History of Present Illness - Reason for Consult Consult date: 02/25/24 - History of Present Illness Patient is a 63-year-old male with a past medical history significant for diabetes mellitus hyperlipidemia atrial fibrillation apparently the patient initially presented to the [facility] concerning for urinary tract infection CT did shows bifid renal pelvis and evidence of hydronephrosis or the patient has been transferred to [facility] to be evaluated by ur ology services patient did have a blood culture done at that facility which came back positive with gram-negative bacilli prompting this consultation. Patient has been afebrile during this hospital stay patient not tachycardic hypotensive or hypoxic patient breathing comfortably on room air no chest pain shortness of breath or cough no abdominal pain no diarrhea or any urinary symptoms. Patient did have white count of 19.2 on admission which has normalized to 10.1 creatinine is 1.24 liver enzymes are normal blood culture repeat currently pending Past Medical History Past Medical History: Atrial Fibrillation, Diabetes Mellitus, Hyperlipidemia, Skin Disorder Additional Past Medical History / Comment(s): healed wound rt heel History of Any Multi-Drug Resistant Organisms: None Reported Past Surgical History: Cardiac Ablation, Orthopedic Surgery Additional Past Surgical History / Comment(s): cardioversion, rotator cuff surg., hand surg., throat surgery, total right knee 2021. Past Anesthesia/Blood Transfusion Reactions: No Reported Reaction Smoking Status: Vaper Past Alcohol Use History: None Reported Past Drug Use History: None Reported - Past Family History Mother Family Medical History: No Reported History Medications and Allergies Home Medications Medication Instructions Recorded Confirmed Type Rivaroxaban [Xarelto] 20 mg PO DAILY 11/02/14 02/23/24 History Atorvastatin [Lipitor] 20 mg PO DAILY 05/09/15 02/23/24 History lisinopriL [Zestril] 2.5 mg PO DAILY 12/07/22 02/23/24 History Dapagliflozin Propanediol [Farxiga] 10 mg PO DAILY 02/23/24 02/23/24 History Semaglutide [Ozempic] 2 mg SQ WE 02/23/24 02/23/24 History Allergies Allergy/AdvReac Type Severity Reaction Status Date / Time No Known Allergies Allergy Verified 02/23/24 18:01 Physical Exam Vitals: Vital Signs Temp Pulse Resp BP Pulse Ox 02/25/24 04:00 68 16 124/58 98 02/25/24 02:00 77 14 02/24/24 20:00 97.7 F 76 16 142/76 98 02/24/24 17:00 94 16 125/74 97 02/24/24 11:50 98.2 F 83 16 123/60 97 02/24/24 08:55 98.3 F 81 16 126/77 97 Intake and Output 02/24/24 02/24/24 02/25/24 14:59 22:59 06:59 Intake Total 540 Balance 540 Intake: Oral 540 Other: # Voids 2 1 Results CBC & Chem 7: 02/25/24 08:51 02/25/24 08:51 Labs: Abnormal Lab Results - Last 24 Hours (Table) 02/24/24 02/24/24 02/24/24 Range/Units 06:23 11:31 16:33 POC Glucose (mg/dL) 153 H 137 H 149 H (70-110) mg/dL 02/24/24 Range/Units 19:46 POC Glucose (mg/dL) 250 H (70-110) mg/dL Microbiology - Last 24 Hours (Table) 02/23/24 17:33 Blood Culture - Preliminary Blood Assessment and Plan Plan: This is a telehealth visit 1patient with a gram-negative bacteremia source likely complicated UTI as the patient did have evidence of renal stone and mild hydronephrosis patient has been evaluated by urology and wanting treatment for infection before proceeding with any surgical intervention 2Rocephin dose adjusted to 2 g daily 3once repeat blood culture negative and the patient showing clinical improvement will be able to finish therapy with oral antibiotics discussed with the admitting team We will follow on clinical condition and cultures to further adjust medication if needed Thank you for this consultation we will follow the patient along with you Dictation was produced using [employer] dictation software. please excuse any grammatical, word or spelling errors. Time with Patient: Greater than 30
--- NOTE | 2024-02-25 22:38 | P.PN ---
Subjective Progress Note Date: 02/25/24 This is a pleasant 63-year-old male with medical history significant for diabetes mellitus, hypertension, hyperlipidemia, atrial fibrillation, prior cardioversion. Patient was initially admitted over to [facility] with concern for urinary tract infection and sepsis was found to have a nonobs tructing stone and was brought over to [facility] for urological evaluation. Patient's abdominal pelvis CT over at [facility] showed a bifid renal pelvis on the right with a stone in the upper pole of the pelvis with some mild hydronephrosis. He was treated with IV antibiotics and brought over to [facility]. Patient is not currently having any fever or chills he denies ever having any flank pain or abdominal pain. He had repeat blood work here showing a white blood cell count of 19.2 a hemoglobin of 11.9, sodium of 133, BUN of 23, creatinine of 1.24. He has been resumed on empiric antibiotics with IV ceftriaxone. Urology at this time is recommending antibiotics and treatment of the sepsis before considering this patient for a stone removal. 02/25/2024 Patient evaluated in follow up. Patient having no acute complaints overnight. Renal function has normalized with a BUN of 25 and creatinine of 1.04. His blood culture from outside hospital showing augustina gutierrez e.coli on 2 cultures. ID foll owing. Blood cultures have been repeated here and currently pending, negative at 24 hours. Patient continues on IV ceftriaxone and 0.45 normal saline at 75 mls/hr. REVIEW OF SYSTEMS: CONSTITUTIONAL: No fever, no malaise, no fatigue. HEENT: No recent visual problems or hearing problems. Denied any sore throat. CARDIOVASCULAR: No chest pain, orthopnea, PND, no palpitations, no syncope. PULMONARY: No shortness of breath, no cough, no hemoptysis. GASTROINTESTINAL: No diarrhea, no nausea, no vomiting, no abdominal pain. NEUROLOGICAL: No headaches, no weakness, no numbness. The rest of the 14-point review of systems is negative. PHYSICAL EXAMINATION: GENERAL: The patient is alert and oriented x3, not in any acute distress. Well developed, well nourished. HEENT: Pupils are round and equally reacting to light. EOMI. No scleral icterus. No conjunctival pallor. Normocephalic, atraumatic. No pharyngeal erythema. No thyromegaly. CARDIOVASCULAR: S1 and S2 present. No murmurs, rubs, or gallops. PULMONARY: Chest is clear to auscultation, no wheezing or crackles. ABDOMEN: Soft, nontender, nondistended, normoactive bowel sounds. No palpable organomegaly. MUSCULOSKELETAL: No joint swelling or deformity. EXTREMITIES: No cyanosis, clubbing, or pedal edema. NEUROLOGICAL: Gross neurological examination did not reveal any focal deficits. SKIN: No rashes. Assessment and Plan Acute urinary tract infection and sepsis on IV ceftriaxone E.Coli bacteremia found at [facility]; patient will be continued on IV ceftriaxone repeat blood cultures taking and ID consultation. Patient is pending microsensitivities from outside hospital. Nephrolithiasis and mild hydronephrosis Acute kidney injury from ATN and sepsis; renal function is normalizing patient continues on IV fluids. Continue to monitor for urinary retention with PVR. Leukocytosis Hx of paroxysmal atrial fibrillation anticoagulated with xarelto Diabetes Mellitus type 2 continue accuchecks achs and sliding scale insulin Hyperlipidemia on statin therapy Prior cardiac ablation and cardioversion for the a.fib Hx of tobacco use GI prophylaxis DVT prophylaxis Full code The impression and plan of care has been dictated by Myriam Diaz, Nurse Practitioner as directed. Dr. Gulshan MD I have performed a history and physical examination and medical decision making of this patient, discussed the same with the dictator, and agree with the dictators assessment and plan as written, documented as a scribe. Based on total visit time, I have performed more than 50% of this visit. Objective - Vital Signs Vital signs: Vital Signs Temp 98.9 F 02/25/24 19:12 Pulse 87 02/25/24 19:12 Resp 17 02/25/24 19:12 BP 126/69 02/25/24 19:12 Pulse Ox 99 02/25/24 19:12 FiO2 Intake & Output 02/25/24 02/25/24 02/26/24 06:59 18:59 06:59 Intake Total 500 Balance 500 Intake: IV 20 Invasive Line 2 20 Oral 480 Other: Voiding Method Toilet # Voids 1 1 - Labs CBC & Chem 7: 02/25/24 08:51 02/25/24 08:51 Labs: Abnormal Lab Results - Last 24 Hours (Table) 02/25/24 02/25/24 02/25/24 Range/Units 06:12 08:51 08:51 RBC 3.15 L (4.30-5.90) m/uL Hgb 10.2 L (13.0-17.5) gm/dL Hct 30.3 L (39.0-53.0) % Neutrophils # 8.2 H (1.3-7.7) k/uL Lymphocytes # 0.9 L (1.0-4.8) k/uL Sodium 131 L (137-145) mmol/L Carbon Dioxide 19 L (22-30) mmol/L BUN 25 H (9-20) mg/dL Glucose 214 H (74-99) mg/dL POC Glucose (mg/dL) 174 H (70-110) mg/dL 02/25/24 02/25/24 Range/Units 11:49 22:11 RBC (4.30-5.90) m/uL Hgb (13.0-17.5) gm/dL Hct (39.0-53.0) % Neutrophils # (1.3-7.7) k/uL Lymphocytes # (1.0-4.8) k/uL Sodium (137-145) mmol/L Carbon Dioxide (22-30) mmol/L BUN (9-20) mg/dL Glucose (74-99) mg/dL POC Glucose (mg/dL) 201 H 226 H (70-110) mg/dL Microbiology - Last 24 Hours (Table) 02/23/24 17:33 Blood Culture - Preliminary Blood Assessment and Plan Time with Patient: Less than 30
[2024-02-26 05:55] LABS: Glucose,Whole Blood 165 mg/dL (70-110)
[2024-02-26 08:09] LABS: African American GFR (CKD) >90 (>60 ml/min/1.73 sqM); Anion Gap 6 mmol/L; Blood Urea Nitrogen 19 mg/dL (9-20); Calcium 8.6 mg/dL (8.4-10.2); Carbon Dioxide 22 mmol/L (22-30); Chloride 107 mmol/L (98-107); Glucose 177 mg/dL (74-99); Magnesium 1.8 mg/dL (1.6-2.3); Non-African American GFR(CKD) 83 (>60 ml/min/1.73 sqM); Potassium 4.4 mmol/L (3.5-5.1); Sodium 135 mmol/L (137-145)
[2024-02-26 08:34] VITALS: BP 120/72; PULSE 72; RESP 19; TEMP 98.9
--- NOTE | 2024-02-26 10:18 | P.PN ---
Subjective Progress Note Date: 02/26/24 The patient is in the hospital witha pyelonephritis and a right renal stone. He is feeling well and his wbc is down to 10k yesterday. Objective - Vital Signs Vital signs: Vital Signs Temp 98.3 F 02/26/24 01:45 Pulse 66 02/26/24 01:45 Resp 18 02/26/24 01:45 BP 96/57 02/26/24 01:45 Pulse Ox 97 02/26/24 01:45 FiO2 Intake & Output 02/25/24 02/26/24 02/26/24 18:59 06:59 18:59 Intake Total 500 Balance 500 Weight 53 kg Intake: IV 20 Invasive Line 2 20 Oral 480 Other: Voiding Method Toilet # Voids 1 - Labs CBC & Chem 7: 02/25/24 08:51 02/26/24 07:20 Labs: Abnormal Lab Results - Last 24 Hours (Table) 02/25/24 02/25/24 02/25/24 Range/Units 08:51 08:51 11:49 RBC 3.15 L (4.30-5.90) m/uL Hgb 10.2 L (13.0-17.5) gm/dL Hct 30.3 L (39.0-53.0) % Neutrophils # 8.2 H (1.3-7.7) k/uL Lymphocytes # 0.9 L (1.0-4.8) k/uL Sodium 131 L (137-145) mmol/L Carbon Dioxide 19 L (22-30) mmol/L BUN 25 H (9-20) mg/dL Glucose 214 H (74-99) mg/dL POC Glucose (mg/dL) 201 H (70-110) mg/dL 02/25/24 02/26/24 Range/Units 22:11 05:54 RBC (4.30-5.90) m/uL Hgb (13.0-17.5) gm/dL Hct (39.0-53.0) % Neutrophils # (1.3-7.7) k/uL Lymphocytes # (1.0-4.8) k/uL Sodium (137-145) mmol/L Carbon Dioxide (22-30) mmol/L BUN (9-20) mg/dL Glucose (74-99) mg/dL POC Glucose (mg/dL) 226 H 165 H (70-110) mg/dL Microbiology - Last 24 Hours (Table) 02/24/24 17:31 Blood Culture - Preliminary Blood 02/23/24 17:33 Blood Culture - Preliminary Blood Assessment and Plan Assessment: Impression: pyelonephritis right, right kidney stone Plan: from a urological standpoint he can go home and fu in the office with me for discussion and treatment recommendations about his kidney stone
[2024-02-26 12:09] LABS: Glucose,Whole Blood 205 mg/dL (70-110)
--- NOTE | 2024-02-26 15:43 | P.PN ---
Subjective Progress Note Date: 02/26/24 Principal diagnosis: Reason for follow-up is E. coli UTI and bacteremia Patient is a 63-year-old male with a past medical history significant for diabetes mellitus hyperlipidemia atrial fibrillation apparently the patient initially presented to the [facility] concerning for urinary tract infection CT did shows bifid renal pelvis and evidence of hydronephrosis or the patient has been transferred to [facility] to be evaluated by urology services, patient also have a positive blood culture with E. coli. On today's evaluation that is 02/26/2024,the patient denies any fever or any chills, patient is breathing comfortably on room air, the patient denies chest pain shortness of breath and no significant cough, patient denies abdominal pain, no nausea vomiting or diarrhea., Patient mention feeling better no new symptoms. Patient creatinine 0.98 white count of 10.1 blood culture repeat negative Objective - Vital Signs Vital signs: Vital Signs Temp 98.9 F 02/26/24 07:24 Pulse 72 02/26/24 07:24 Resp 19 02/26/24 07:24 BP 120/72 02/26/24 07:24 Pulse Ox 98 02/26/24 07:24 FiO2 Intake & Output 02/25/24 02/26/24 02/26/24 18:59 06:59 18:59 Intake Total 500 Balance 500 Weight 53 kg 86.183 kg Intake: IV 20 Invasive Line 2 20 Oral 480 Other: Voiding Method Toilet # Voids 1 - Exam GENERAL DESCRIPTION: Middle-age male up in bed in no distress RESPIRATORY SYSTEM: Unlabored breathing , decreased breath sounds at bases HEART: S1 S2 regular rate and rhythm , ABDOMEN: Soft , no tenderness EXTREMITIES: No edema feet - Labs CBC & Chem 7: 02/25/24 08:51 02/26/24 07:20 Labs: Abnormal Lab Results - Last 24 Hours (Table) 02/25/24 02/25/24 02/26/24 Range/Units 11:49 22:11 05:54 Sodium (137-145) mmol/L Glucose (74-99) mg/dL POC Glucose (mg/dL) 201 H 226 H 165 H (70-110) mg/dL 02/26/24 Range/Units 07:20 Sodium 135 L (137-145) mmol/L Glucose 177 H (74-99) mg/dL POC Glucose (mg/dL) (70-110) mg/dL Microbiology - Last 24 Hours (Table) 02/24/24 17:31 Blood Culture - Preliminary Blood 02/23/24 17:33 Blood Culture - Preliminary Blood Assessment and Plan (1) E coli bacteremia Current Visit: Yes Status: Acute Code(s): R78.81 - BACTEREMIA; B96.20 - UNSP ESCHERICHIA COLI THE CAUSE OF DISEASES [facility] SNOMED Code(s): 725872388725 (2) UTI (urinary tract infection) Current Visit: Yes Status: Acute Code(s): N39.0 - URINARY TRACT INFECTION, SITE NOT SPECIFIED SNOMED Code(s): 32313811 Plan: 1patient with a E. coli bacteremia source likely complicated UTI as the patient did have evidence of renal stone and mild hydronephrosis patient has been evaluated by urology and wanting treatment for infection before proceeding with any surgical intervention 2patient repeat blood culture has been negative feeling better insisting on going home patient be able to finish therapy with oral Cipro prescription has been sent to the pharmacy discussed with MAIL CARRIER for admitting team Dictation was produced using [employer] dictation software. please excuse any grammatical, word or spelling errors. Time with Patient: Less than 30
--- NOTE | 2024-02-28 23:53 | P.DS ---
Providers Date of admission: 02/23/24 16:39 Attending physician: Min Gaffney Consults: 02/23/24 15:05 Consult Physician Urgent Consulting Provider: Hugh Mendoza Consult Reason/Comments: Bacteremia with septicemia and UTI, hydronephrosis, kidney stones Do you want consulting provider notified?: Yes 02/24/24 16:51 Consult Physician Routine Consulting Provider: Jammie Bowen Consult Reason/Comments: echoli bacteremia with septicemia and UTI Do you want consulting provider notified?: Yes Primary care physician: Alejandro Richardson Hospital Course: Final Diagnosis Acute urinary tract infection and sepsis E.Coli bacteremia found at [facility] Nephrolithiasis and mild hydronephrosis Acute kidney injury from ATN and sepsis; renal function is normalizing Leukocytosis Hx of paroxysmal atrial fibrillation anticoagulated with xarelto Diabetes Mellitus type 2 continue accuchecks achs and sliding scale insulin Hyperlipidemia on statin therapy Prior cardiac ablation and cardioversion for the a.fib Hx of tobacco use Discharge Disposition Patient is stable for discharge home. Will complete course of oral antibiotics with oral cipro for the next 12 days. Follow up with ID in the office in 1 week. Repeat blood cultures are negative and show clearance of the bacteremia. Recommending to repeat a BMP in 2 to 3 days. Follow up with PCP Dr Alejandro Richardson in 1 to 2 days. Follow up with urology. Hospital Course This is a pleasant 63-year-old male with medical history significant for diabetes mellitus, hypertension, hyperlipidemia, atrial fibrillation, prior cardioversion. Patient was initially admitted over to [facility] with concern for urinary tract infection and sepsis was found to have a nonobstructing stone and was brought over to [facility] for urological evaluation. Patient's abdominal pelvis CT over at [facility] showed a bifid renal pelvis on the right with a stone in the upper pole of the pelvis with some mild hydronephrosis. He was treated with IV antibiotics and brought over to [facility]. Patient is not currently having any fever or chills he denies ever having any flank pain or abdominal pain. He had repeat blood work here showing a white blood cell count of 19.2 a hemoglobin of 11.9, sodium of 133, BUN of 23, creatinine of 1.24. He has been resumed on empiric antibiotics with IV ceftriaxone. Urology at this time is recommending antibiotics and treatment of the sepsis before considering this patient for a stone removal. HerPatient evaluated in follow up. Patient having no acute complaints overnight. Renal function has normalized with a BUN of 25 and creatinine of 1.04. His blood culture from outside hospital showing jackman matt e.coli on 2 cultures. ID following. Blood cultures have been repeated here are are now negative Patient continues on IV ceftriaxone and 0.45 normal saline at 75 mls/hr. Patient to follow up with urology in the office. He is not having any abdominal pain, nausea, vomiting or diarrhea. He was recommended to continue on cipro oral for the next 12 days. His white blood cell count has normalized. Patient will be discharged home. Please see medication reconciliation for a list of current medications. Thank you for allowing us to participate in the care of this patient. The impression and plan of care has been dictated by Myriam Diaz, Nurse Practitioner as directed. Dr. Gulshan MD I have performed a history and physical examination and medical decision making of this patient, discussed the same with the dictator, and agree with the dictators assessment and plan as written, documented as a scribe. Based on total visit time, I have performed more than 50% of this visit. Patient Condition at Discharge: Stable Plan - Discharge Summary Discharge Rx Participant: Yes New Discharge Prescriptions: New Ciprofloxacin HCl [Cipro] 500 mg PO Q12HR 12 Days #24 tab Metoprolol Tartrate [Lopressor] 12.5 mg PO BID #30 tab Atorvastatin [Lipitor] 20 mg PO HS #30 tab Famotidine [Pepcid] 20 mg PO DAILY #30 tablet Ciprofloxacin HCl [Cipro] 500 mg PO BID 10 Days #20 tab Continue Rivaroxaban [Xarelto] 20 mg PO DAILY Semaglutide [Ozempic] 2 mg SQ WE Dapagliflozin Propanediol [Farxiga] 10 mg PO DAILY Discontinued Atorvastatin [Lipitor] 20 mg PO DAILY lisinopriL [Zestril] 2.5 mg PO DAILY Discharge Medication List Rivaroxaban [Xarelto] 20 mg PO DAILY 11/02/14 [History] Dapagliflozin Propanediol [Farxiga] 10 mg PO DAILY 02/23/24 [History] Semaglutide [Ozempic] 2 mg SQ WE 02/23/24 [History] Atorvastatin [Lipitor] 20 mg PO HS #30 tab 06/15/24 [Rx] Ciprofloxacin HCl [Cipro] 500 mg PO BID 10 Days #20 tab 02/26/24 [Rx] Ciprofloxacin HCl [Cipro] 500 mg PO Q12HR 12 Days #24 tab 02/26/24 [Rx] Famotidine [Pepcid] 20 mg PO DAILY #30 tablet 02/26/24 [Rx] Metoprolol Tartrate [Lopressor] 12.5 mg PO BID #30 tab 02/26/24 [Rx] Follow up Appointment(s)/Referral(s): Hugh Mendoza MD [STAFF PHYSICIAN] - 1 Week Alejandro Richardson MD [Primary Care Provider] - 1 Week Jammie Bowen MD [STAFF PHYSICIAN] - 1 Week Ambulatory/Diagnostic Orders: Basic Metabolic Panel [LAB.AMB] Time Frame: 3 Days, Location: None Selected Patient Instructions/Handouts: Kidney Stones (DC), Urinary Tract Infection in Men (DC) Discharge Disposition: HOME SELF-CARE
== END 2024-02-26 15:59 | disposition home or self-care (01) | DRG 871 ==
LOC: 3SCARD 16:39 → 4SSUR 02-25 13:51
PROVIDERS: ADMIT Internal Medicine; ATTEND Internal Medicine
DX: A41.51 Sepsis due to Escherichia coli [E. coli] (principal); N17.0 Acute kidney failure with tubular necrosis; N13.6 Pyonephrosis; E11.9 Type 2 diabetes mellitus without complications; E78.5 Hyperlipidemia, unspecified; I10 Essential (primary) hypertension; I48.0 Paroxysmal atrial fibrillation; Z79.01 Long term (current) use of anticoagulants; Z79.84 Long term (current) use of oral hypoglycemic drugs; Z79.899 Other long term (current) drug therapy; Z87.891 Personal history of nicotine dependence
CPT/HCPCS: 80048; 80053; 83735; 85025; 87040

== ENCOUNTER 2024-03-01 19:43 | Inpatient (IN) | payer BC ==
[2024-03-01] MEDS: SODIUM CHLORIDE 0.9% 1,000 ML IV ONE (21:08)
[2024-03-01] MEDS: ONDANSETRON 4 MG/2 ML VIAL IVP STA (21:10)
[2024-03-01 21:19] LABS: Basophils % (A) 0 %; Eosinophils # (A) 0.1 k/uL (0-0.7); Eosinophils % (A) 1 %; HCT 38.2 % (39.0-53.0); HGB 12.4 gm/dL (13.0-17.5); Lymphocytes % (A) 7 %; MCH 30.6 pg (25.0-35.0); MCHC 32.5 g/dL (31.0-37.0); Mean Platelet Volume 7.3; Monocytes # (A) 0.7 k/uL (0-1.0); Monocytes % (A) 5 %; Neutrophils # (A) 12.2 k/uL (1.3-7.7); Neutrophils % (A) 87 %; Platelet Count 632 k/uL (150-450); RBC 4.06 m/uL (4.30-5.90); RDW 12.7 % (11.5-15.5); WBC 14.1 k/uL (3.8-10.6)
[2024-03-01 21:30] LABS: ALT 45 U/L (4-49); AST 28 U/L (17-59); African American GFR (CKD) 48 (>60 ml/min/1.73 sqM); Albumin 4.1 g/dL (3.5-5.0); Alkaline Phosphatase 102 U/L (38-126); Anion Gap 14 mmol/L; Blood Urea Nitrogen 35 mg/dL (9-20); Calcium 9.3 mg/dL (8.4-10.2); Carbon Dioxide 20 mmol/L (22-30); Chloride 101 mmol/L (98-107); Glucose 192 mg/dL (74-99); Non-African American GFR(CKD) 41 (>60 ml/min/1.73 sqM); Potassium 4.6 mmol/L (3.5-5.1); Sodium 135 mmol/L (137-145); Total Bilirubin 0.8 mg/dL (0.2-1.3); Total Protein 7.3 g/dL (6.3-8.2)
[2024-03-01 22:14] LABS: Appearance,Urine Clear (Clear); Bilirubin,Urine Negative (Negative); Blood,Urine Moderate (Negative); Color,Urine Colorless; Glucose,Urine (UA) 4+ (Negative); Ketones,Urine 1+ (Negative); Leukocyte Esterase,Urine Trace (Negative); Mucus,Urine Rare /hpf; Nitrite,Urine Negative (Negative); Protein,Urine Negative (Negative); RBC,Urine 24 /hpf (0-5); Specific Gravity,Urine 1.024 (1.001-1.035); Urobilinogen,Urine <2.0 mg/dL (<2.0); WBC,Urine 8 /hpf (0-5)
[2024-03-01] MEDS: ACETAMINOPHEN TAB 500 MG TAB PO STA (22:42)
--- NOTE | 2024-03-01 22:45 | ED ---
General Adult HPI - General Chief complaint: Nausea/Vomiting/Diarrhea Stated complaint: re-check Time Seen by Provider: 03/01/24 20:25 Source: patient Mode of arrival: ambulatory Limitations: no limitations - History of Present Illness Initial comments: 63-year-old male with a past medical history significant for diabetes, A-fib presenting to the ED with a chief complaint of abnormal labs. Patient was recently discharged from this facility after treatment for UTI and sepsis. During his stay here he was treated with IV antibiotics. Was found to have a bifid renal pelvis on CAT scan at [facility] with a stone in the upper pole of the pelvis with mild hydronephrosis. Urology at his stay here recommended treatment of his UTI with sepsis prior to removal of the stone. Patient was then discharged on 02/26/2024 with prescription for Cipro 500 mg twice daily which she reports he has been taking as prescribed. Yesterday during regular follow-up had labs performed and today was informed that they were abnormal and was instructed to present to the ED for further evaluation. Labs at this time significant for an elevated white blood cell count at 11. Thrombocytosis at 568. Elevated neutrophils 3.2. CO2 21.2, anion gap of 16.8, BUN 31.7, creatinine 1.8. - Related Data Home Medications Medication Instructions Recorded Confirmed Rivaroxaban [Xarelto] 20 mg PO DAILY 11/02/14 02/23/24 Dapagliflozin Propanediol [Farxiga] 10 mg PO DAILY 02/23/24 02/23/24 Semaglutide [Ozempic] 2 mg SQ WE 02/23/24 02/23/24 Previous Rx's Medication Instructions Recorded Atorvastatin [Lipitor] 20 mg PO HS #30 tab 02/26/24 Ciprofloxacin HCl [Cipro] 500 mg PO BID 10 Days #20 tab 02/26/24 Ciprofloxacin HCl [Cipro] 500 mg PO Q12HR 12 Days #24 tab 02/26/24 Famotidine [Pepcid] 20 mg PO DAILY #30 tablet 02/26/24 Metoprolol Tartrate [Lopressor] 12.5 mg PO BID #30 tab 02/26/24 Allergies Allergy/AdvReac Type Severity Reaction Status Date / Time No Known Allergies Allergy Verified 03/01/24 19:57 Review of Systems ROS Statement: Those systems with pertinent positive or pertinent negative responses have been documented in the HPI. ROS Other: All systems not noted in ROS Statement are negative. Past Medical History Past Medical History: Atrial Fibrillation, Diabetes Mellitus, Hyperlipidemia, Skin Disorder Additional Past Medical History / Comment(s): healed wound rt heel, kidney stones History of Any Multi-Drug Resistant Organisms: None Reported Past Surgical History: Cardiac Ablation, Orthopedic Surgery Additional Past Surgical History / Comment(s): cardioversion, rotator cuff surg., hand surg., throat surgery, total right knee 2021. Past Anesthesia/Blood Transfusion Reactions: No Reported Reaction Past Psychological History: No Psychological Hx Reported Smoking Status: Vaper Past Alcohol Use History: None Reported Past Drug Use History: None Reported - Past Family History Mother Family Medical History: No Reported History General Exam Limitations: no limitations General appearance: alert, in no apparent distress Eye exam: Present: normal appearance Neck exam: Present: normal inspection Respiratory exam: Present: normal lung sounds bilaterally Cardiovascular Exam: Present: regular rate GI/Abdominal exam: Present: soft (Diffuse abdominal tenderness to palpation. Right flank tenderness to percussion.) Neurological exam: Present: alert, oriented X3 Skin exam: Present: warm, dry Course Vital Signs 03/01/24 03/01/24 19:58 22:46 Temperature 98.5 F 97.7 F Pulse Rate 96 73 Respiratory 22 16 Rate Blood Pressure 127/56 167/84 O2 Sat by Pulse 95 100 Oximetry Medical Decision Making - Medical Decision Making Was pt. sent in by a medical professional or institution (PAULINE Walsh, ORTHOPHOTO TECH/DRAFTSMAN, urgent care, hospital, or shelter...) When possible be specific @ -Sent sent in by PCP Did you speak to anyone other than the patient for history (EMS, parent, family, police, friend...)? What history was obtained from this source @ -No Did you review nursing and triage notes (agree or disagree)? Why? @ -I reviewed and agree with nursing and triage notes Were old charts reviewed (outside hosp., previous admission, EMS record, old EKG, old radiological studies, urgent care reports/EKG's, shelter records)? Report findings @ -Prior visit reviewed. For further details please see HPI. Differential Diagnosis (chest pain, altered mental status, abdominal pain women, abdominal pain men, vaginal bleeding, weakness, fever, dyspnea, syncope, headache, dizziness, GI bleed, back pain, seizure, CVA, palpatations, mental health, musculoskeletal)? @ -Differential Abdominal Pain Men: Appendicitis, cholecystitis, diverticulosis, ischemic bowel, pancreatitis, hepatitis, UTI, gastroenteritis, AAA, incarcerated hernia, bowel obstruction, constipation, inflammatory bowel, hepatitis, peptic ulcer disease, splenic infarction, perforated viscus, testicular torsion, this is not meant to be an all-inclusive list EKG interpreted by me (3pts min.). @ -As above X-rays interpreted by me (1pt min.). @ -None done CT interpreted by me (1pt min.). @ -CT abdomen pelvis pending at this time. U/S interpreted by me (1pt. min.). @ -None done What testing was considered but not performed or refused? (CT, X-rays, U/S, labs)? Why? @ -None What meds were considered but not given or refused? Why? @ -None Did you discuss the management of the patient with other professionals (professionals i.e. , PA, ORTHOPHOTO TECH/DRAFTSMAN, lab, RT, psych nurse, social staff worker, playground supervisor, teacher, surveillance dual rate officer, onsite case manager)? Give summary @ -Case discussed with [facility], who accepts admission under [facility]. Was smoking cessation discussed for >3mins.? @ -No Was critical care preformed (if so, how long)? @ -No Were there social determinants of health that impacted care today? How? (Homelessness, low income, unemployed, alcoholism, drug addiction, transportation, low edu. Level, literacy, decrease access to med. care, residential, rehab)? @ -No Was there de-escalation of care discussed even if they declined (Discuss DNR or withdrawal of care, Hospice)? DNR status @ -No What co-morbidities impacted this encounter? (DM, HTN, Smoking, COPD, CAD, Cancer, CVA, ARF, Chemo, Hep., AIDS, mental health diagnosis, sleep apnea, morbid obesity)? @ -None Was patient admitted / discharged? Hospital course, mention meds given and route, prescriptions, significant lab abnormalities, going to OR and other pertinent info. @ -Admission 73-year-old male presenting to the ED with complaints of abnormal labs also abdominal pain, flank pain, nausea. Patient recently discharged from this facility on 02/26/2024. Had repeat labs drawn yesterday and was advised to present to the ED due to abnormal labs. Laboratory studies performed here reviewed. CBC shows an elevated white blood cell count at 14.1 thrombocytosis at 632, chemistry panel significant for an BUN of 35, creatinine 1.74. Urine shows 4+ glucose, 1+ ketones, trace leukocyte Estrace, 8 white blood cells, 24 RBCs. Patient will be admitted for IV antibiotics with consults to urology infectious disease. At this time he is afebrile and hemodynamically stable. CT of the abdomen pelvis is pending. Undiagnosed new problem with uncertain prognosis? @ -No Drug Therapy requiring intensive monitoring for toxicity (Heparin, Nitro, Insulin, Cardizem)? @ -No Were any procedures done? @ -No Diagnosis/symptom? @ -UTI Acute, or Chronic, or Acute on Chronic? @ -Acute Uncomplicated (without systemic symptoms) or Complicated (systemic symptoms)? @ -Uncomplicated Side effects of treatment? @ -No Exacerbation, Progression, or Severe Exacerbation? @ -No Poses a threat to life or bodily function? How? (Chest pain, [place], [place], pneumonia, PE, COPD, DKA, ARF, appy, cholecystitis, CVA, Diverticulitis, Homicidal, Suicidal, threat to staff... and all critical care pts) @ -Possibly, however unlikely at this time. - Lab Data Result diagrams: 03/01/24 21:03 03/01/24 21:03 Lab Results 03/01/24 03/01/24 03/01/24 Range/Units 21:03 21:03 21:03 WBC 14.1 H (3.8-10.6) k/uL RBC 4.06 L (4.30-5.90) m/uL Hgb 12.4 L (13.0-17.5) gm/dL Hct 38.2 L (39.0-53.0) % MCV 94.0 (80.0-100.0) fL MCH 30.6 (25.0-35.0) pg MCHC 32.5 (31.0-37.0) g/dL RDW 12.7 (11.5-15.5) % Plt Count 632 H (150-450) k/uL MPV 7.3 Neutrophils % 87 % Lymphocytes % 7 % Monocytes % 5 % Eosinophils % 1 % Basophils % 0 % Neutrophils # 12.2 H (1.3-7.7) k/uL Lymphocytes # 1.0 (1.0-4.8) k/uL Monocytes # 0.7 (0-1.0) k/uL Eosinophils # 0.1 (0-0.7) k/uL Basophils # 0.0 (0-0.2) k/uL Sodium 135 L (137-145) mmol/L Potassium 4.6 (3.5-5.1) mmol/L Chloride 101 (98-107) mmol/L Carbon Dioxide 20 L (22-30) mmol/L Anion Gap 14 mmol/L BUN 35 H (9-20) mg/dL Creatinine 1.74 H (0.66-1.25) mg/dL Est GFR (CKD-EPI)AfAm 48 (>60 ml/min/1.73 sqM) Est GFR (CKD-EPI)NonAf 41 (>60 ml/min/1.73 sqM) Glucose 192 H (74-99) mg/dL Plasma Lactic Acid Sloan 1.4 (0.7-2.0) mmol/L Calcium 9.3 (8.4-10.2) mg/dL Total Bilirubin 0.8 (0.2-1.3) mg/dL AST 28 (17-59) U/L ALT 45 (4-49) U/L Alkaline Phosphatase 102 (38-126) U/L Total Protein 7.3 (6.3-8.2) g/dL Albumin 4.1 (3.5-5.0) g/dL Urine Color Urine Appearance (Clear) Urine pH (5.0-8.0) Ur Specific [place] (1.001-1.035) Urine Protein (Negative) Urine Glucose (UA) (Negative) Urine Ketones (Negative) Urine Blood (Negative) Urine Nitrite (Negative) Urine Bilirubin (Negative) Urine Urobilinogen (<2.0) mg/dL Ur Leukocyte Esterase (Negative) Urine RBC (0-5) /hpf Urine WBC (0-5) /hpf Urine Mucus (None) /hpf 03/01/24 Range/Units 21:58 WBC (3.8-10.6) k/uL RBC (4.30-5.90) m/uL Hgb (13.0-17.5) gm/dL Hct (39.0-53.0) % MCV (80.0-100.0) fL MCH (25.0-35.0) pg MCHC (31.0-37.0) g/dL RDW (11.5-15.5) % Plt Count (150-450) k/uL MPV Neutrophils % % Lymphocytes % % Monocytes % % Eosinophils % % Basophils % % Neutrophils # (1.3-7.7) k/uL Lymphocytes # (1.0-4.8) k/uL Monocytes # (0-1.0) k/uL Eosinophils # (0-0.7) k/uL Basophils # (0-0.2) k/uL Sodium (137-145) mmol/L Potassium (3.5-5.1) mmol/L Chloride (98-107) mmol/L Carbon Dioxide (22-30) mmol/L Anion Gap mmol/L BUN (9-20) mg/dL Creatinine (0.66-1.25) mg/dL Est GFR (CKD-EPI)AfAm (>60 ml/min/1.73 sqM) Est GFR (CKD-EPI)NonAf (>60 ml/min/1.73 sqM) Glucose (74-99) mg/dL Plasma Lactic Acid Sloan (0.7-2.0) mmol/L Calcium (8.4-10.2) mg/dL Total Bilirubin (0.2-1.3) mg/dL AST (17-59) U/L ALT (4-49) U/L Alkaline Phosphatase (38-126) U/L Total Protein (6.3-8.2) g/dL Albumin (3.5-5.0) g/dL Urine Color Colorless Urine Appearance Clear (Clear) Urine pH 5.0 (5.0-8.0) Ur Specific [place] 1.024 (1.001-1.035) Urine Protein Negative (Negative) Urine Glucose (UA) 4+ H (Negative) Urine Ketones 1+ H (Negative) Urine Blood Moderate H (Negative) Urine Nitrite Negative (Negative) Urine Bilirubin Negative (Negative) Urine Urobilinogen <2.0 (<2.0) mg/dL Ur Leukocyte Esterase Trace H (Negative) Urine RBC 24 H (0-5) /hpf Urine WBC 8 H (0-5) /hpf Urine Mucus Rare H (None) /hpf Disposition Clinical Impression: UTI (urinary tract infection) Disposition: ADMITTED IP TO THIS HOSP Condition: Good Referrals: Alejandro Richardson MD [Primary Care Provider] - 1-2 days
[2024-03-02] MEDS ORDERED: NALOXONE 0.4 MG/ML 1 ML VIAL IV PRN (01:34)
[2024-03-02] MEDS ORDERED: ACETAMINOPHEN TAB 325 MG TAB PO PRN (01:34)
[2024-03-02] MEDS ORDERED: ONDANSETRON 4 MG/2 ML VIAL IVP PRN (01:34)
[2024-03-02] MEDS: cefTRIAXone IN SWFI 1,000 MG/10 ML SYRINGE IVP STA (01:56)
[2024-03-02] MEDS: SODIUM CHLORIDE 0.9% 1,000 ML IV SCH (01:59)
[2024-03-02] MEDS: HYDROmorphone 0.5 MG/0.5 ML SYRINGE IVP PRN (02:05)
--- NOTE | 2024-03-02 02:29 | CT ---
EXAM: CT Abdomen and Pelvis Without Intravenous Contrast CLINICAL HISTORY: ITS.REASON CT Reason: r flank pain TECHNIQUE: Axial computed tomography images of the abdomen and pelvis without intravenous contrast. CTDI is 11.7 mGy and DLP is 661.7 mGy-cm. This CT exam was performed using one or more of the following dose reduction techniques: automated exposure control, adjustment of the mA and/or kV according to patient size, and/or use of iterative reconstruction technique. COMPARISON: No relevant prior studies available. FINDINGS: Lung bases: Unremarkable. No mass. No consolidation. Mediastinum: Small hiatal hernia. ABDOMEN: Liver: Hepatic steatosis. Gallbladder and bile ducts: Cholelithiasis. No ductal dilation. Pancreas: Unremarkable. No ductal dilation. Spleen: Unremarkable. No splenomegaly. Adrenals: Unremarkable. No mass. Kidneys and ureters: Obstructing 2 cm stone in the right UPJ. No hydronephrosis of the right kidney. Right-sided perinephric stranding. Nonobstructing 6 mm stone in the right renal pelvis and 6 cm stone in the right lower pole. Stomach and bowel: Diverticulosis, without acute diverticulitis. No small bowel obstruction. No free intraperitoneal air. PELVIS: Appendix: No findings to suggest acute appendicitis. Bladder: Unremarkable. No stones. Reproductive: Unremarkable as visualized. ABDOMEN and PELVIS: Intraperitoneal space: Unremarkable. No free air. No significant fluid collection. Bones/joints: Degenerative changes of the spine. No acute fracture. No dislocation. Bilateral pars significant at L5. Soft tissues: Unremarkable. Vasculature: Atherosclerotic changes of the aorta. No abdominal aortic aneurysm. Lymph nodes: Unremarkable. No enlarged lymph nodes. IMPRESSION: 1. Obstructing 2 cm stone in the right UPJ. No hydronephrosis of the right kidney. Right-sided perinephric stranding. 2. Nonobstructing 6 mm stone in the right renal pelvis and 6 cm stone in the right lower pole.
--- NOTE | 2024-03-02 11:28 | P.HPIM ---
History of Present Illness H&P Date: 03/02/24 Patient is a 63-year-old male with history of nephrolithiasis, recent E. coli bacteremia, type 2 diabetes, dyslipidemia, atrial fibrillation status post cardiac ablation and cardioversion presenting with worsening nausea and vomiting. He claims that he was recently discharged on the and was doing well on oral antibiotics. However, yesterday he started having nausea vomiting. He denies any chest pain, shortness of breath, abdominal pain, urinary symptoms. He was seen by his primary and asked to come to the hospital. Currently denies any fevers or chills, sick contacts or travel history. In the ED, temperature was 98.5, pulse 96, respiratory rate 22, blood pressure 127/56, saturating at 95% on room air. WBC 14.1, hemoglobin 12.4, platelet 632, sodium 135, bicarb 20, creatinine 1.74, glucose 192, lactate 1.4, urinalysis positive for trace leukocyte esterase, negative nitrates. CT abdomen pelvis shows obstructing 2 cm stone in the right UPJ, no hydronephrosis of the right kidney, right-sided perinephric stranding, nonobstructing 6 mm stone in the right renal pelvis and 6 cm stone in the right lower pole. Patient admitted for sepsis secondary to pyelonephritis. ID and urology consulted Pertinent positives and negatives as discussed in HPI, a complete review of systems was performed and all other systems are negative. Patient seen and examined at bedside. Vital signs reviewed General: nontoxic, no distress, appears at stated age Derm: warm, dry Head: atraumatic, normocephalic, symmetric Eyes: EOMI, no lid lag, anicteric sclera, pupils equal round reactive to light ENT: Nose and ears atraumatic Neck: No thyromegaly, supple Mouth: no lip lesion, mucus membranes moist Cardiovascular: S1S2 reg, no murmur, no edema Lungs: clear to auscultation bilateral, no rhonchi, no rales, no wheeze, no accessory muscle use Abdominal: soft, nontender to palpation, no guarding, no appreciable organomegaly Ext: no gross muscle atrophy, muscle strength muscle strength 5 out of 5 in all 4 extremities, no contractures Neuro: CN II-XII grossly intact Psych: Alert, oriented, appropriate affect Assessment/Plan: Active: Sepsis secondary to right pyelonephritis Obstructing 2 cm stone in the right UPJ Multiple right nephrolithiasis Acute kidney injury Leukocytosis and thrombocytosis -Blood cultures pending -Continue normal saline at 130 cc an hour -On ceftriaxone 2 g IV every 24 hours -Pain control with oral Tylenol, IV Dilaudid as needed -Urology and ID consulted, pending recommendations -Continue to follow renal function for improvement, repeat BMP tomorrow Type 2 diabetes -Sliding scale insulin, monitor for hypoglycemia -Hold Farxiga and Ozempic Atrial fibrillation -Continue metoprolol 12.5 twice daily, hold Xarelto in case patient needs surgery -Monitor on telemetry Dyslipidemia -Continue atorvastatin 20 nightly The patient is admitted with an anticipated greater than 2 midnight stay as inpatient status for evaluation of sepsis. Surrogate decision-maker: Spouse CODE STATUS: Full code DVT prophylaxis: SCDs Anticipated discharge date: Pending clinical course Anticipated discharge place: Pending clinical course A total of 55 minutes was spent on the care of this complex patient more than 50% of the time was spent in counseling and care coordination. Past Medical History Past Medical History: Atrial Fibrillation, Diabetes Mellitus, Hyperlipidemia, Skin Disorder Additional Past Medical History / Comment(s): healed wound rt heel, kidney stones History of Any Multi-Drug Resistant Organisms: None Reported Past Surgical History: Cardiac Ablation, Orthopedic Surgery Additional Past Surgical History / Comment(s): cardioversion, rotator cuff surg., hand surg., throat surgery, total right knee 2021. Past Anesthesia/Blood Transfusion Reactions: No Reported Reaction Past Psychological History: No Psychological Hx Reported Smoking Status: Vaper Past Alcohol Use History: None Reported Past Drug Use History: None Reported - Past Family History Mother Family Medical History: No Reported History Medications and Allergies Home Medications Medication Instructions Recorded Confirmed Type Rivaroxaban [Xarelto] 20 mg PO DAILY 11/02/14 03/02/24 History Dapagliflozin Propanediol [Farxiga] 10 mg PO DAILY 02/23/24 03/02/24 History Semaglutide [Ozempic] 2 mg SQ JAMES 02/23/24 03/02/24 History Atorvastatin [Lipitor] 20 mg PO HS #30 tab 02/26/24 03/02/24 Rx Ciprofloxacin HCl [Cipro] 500 mg PO BID 10 Days #20 tab 02/26/24 03/02/24 Rx Metoprolol Tartrate [Lopressor] 12.5 mg PO BID #30 tab 02/26/24 03/02/24 Rx Allergies Allergy/AdvReac Type Severity Reaction Status Date / Time No Known Allergies Allergy Verified 03/02/24 07:59 Physical Exam Vitals: Vital Signs Temp Pulse Resp BP Pulse Ox 03/02/24 10:00 84 18 125/68 95 03/02/24 08:00 79 16 117/68 97 03/02/24 07:47 75 16 112/64 03/02/24 05:00 75 18 112/64 99 03/02/24 01:02 68 16 137/55 99 03/01/24 22:46 97.7 F 73 16 167/84 100 03/01/24 19:58 98.5 F 96 22 127/56 95 Intake and Output 03/01/24 03/02/24 03/02/24 22:59 06:59 14:59 Other: Weight 86.183 kg Results CBC & Chem 7: 03/01/24 21:03 03/01/24 21:03 Labs: Abnormal Lab Results - Last 24 Hours (Table) 03/01/24 03/01/24 03/01/24 Range/Units 21:03 21:03 21:58 WBC 14.1 H (3.8-10.6) k/uL RBC 4.06 L (4.30-5.90) m/uL Hgb 12.4 L (13.0-17.5) gm/dL Hct 38.2 L (39.0-53.0) % Plt Count 632 H (150-450) k/uL Neutrophils # 12.2 H (1.3-7.7) k/uL Sodium 135 L (137-145) mmol/L Carbon Dioxide 20 L (22-30) mmol/L BUN 35 H (9-20) mg/dL Creatinine 1.74 H (0.66-1.25) mg/dL Glucose 192 H (74-99) mg/dL Urine Glucose (UA) 4+ H (Negative) Urine Ketones 1+ H (Negative) Urine Blood Moderate H (Negative) Ur Leukocyte Esterase Trace H (Negative) Urine RBC 24 H (0-5) /hpf Urine WBC 8 H (0-5) /hpf Urine Mucus Rare H (None) /hpf
--- NOTE | 2024-03-02 13:33 | P.GSCN ---
History of Present Illness Consult date: 03/02/24 Reason for Consult: Right renal stone History of present illness: This is a 63-year-old male that presented to the hospital with right-sided flank pain associated with nausea and vomiting. He has a known history of a 2 cm stone which was previously in the renal pelvis but has now moved to the UPJ, and 2 additional nonobstructing renal stones. He had a recent hospital admission secondary to his stone and bacteremia. No previous history of kidney stones. No previous renal surgeries. He is currently on Cipro for his UTI. In the ER on evaluation he is having minimal right flank pain, indicates the nausea and vomiting has resolved. Denies any dysuria or gross hematuria. Denies any fevers or chills. Underwent a CT abdomen and pelvis that did show the stone has migrated into the UPJ from the bifid renal pelvis with mild hydronephrosis, there is also 2 additional 6 mm stones within the kidney. His creatinine is at 1.7, baseline is around 0.9 Review of Systems - Constitutional Denies fever, Denies weight loss - EENT Ears, nose, mouth and throat: Denies dysphagia - Cardiovascular Denies chest pain, Denies shortness of breath - Respiratory Denies cough, Denies 7 - Gastrointestinal Reports nausea, Reports vomiting - Genitourinary Reports flank pain, Reports hematuria Past Medical History Past Medical History: Atrial Fibrillation, Diabetes Mellitus, Hyperlipidemia, Skin Disorder Additional Past Medical History / Comment(s): healed wound rt heel, kidney stones History of Any Multi-Drug Resistant Organisms: None Reported Past Surgical History: Cardiac Ablation, Orthopedic Surgery Additional Past Surgical History / Comment(s): cardioversion, rotator cuff surg., hand surg., throat surgery, total right knee 2021. Past Anesthesia/Blood Transfusion Reactions: No Reported Reaction Past Psychological History: No Psychological Hx Reported Smoking Status: Vaper Past Alcohol Use History: None Reported Past Drug Use History: None Reported - Past Family History Mother Family Medical History: No Reported History Medications and Allergies Home Medications Medication Instructions Recorded Confirmed Type Rivaroxaban [Xarelto] 20 mg PO DAILY 11/02/14 03/02/24 History Dapagliflozin Propanediol [Farxiga] 10 mg PO DAILY 02/23/24 03/02/24 History Semaglutide [Ozempic] 2 mg SQ JAMES 02/23/24 03/02/24 History Atorvastatin [Lipitor] 20 mg PO HS #30 tab 02/26/24 03/02/24 Rx Ciprofloxacin HCl [Cipro] 500 mg PO BID 10 Days #20 tab 02/26/24 03/02/24 Rx Metoprolol Tartrate [Lopressor] 12.5 mg PO BID #30 tab 02/26/24 03/02/24 Rx Allergies Allergy/AdvReac Type Severity Reaction Status Date / Time No Known Allergies Allergy Verified 03/02/24 07:59 Surgical - Exam Vital Signs Temp Pulse Resp BP Pulse Ox 98.5 F 96 22 127/56 95 03/01/24 19:58 03/01/24 19:58 03/01/24 19:58 03/01/24 19:58 03/01/24 19:58 - General no distress, moderate pain - Eyes normal ocular movement, no pale - ENT normal nares, normal mucosa - Respiratory normal expansion, normal respiratory effort - Abdomen Abdomen: soft, non tender - Psychiatric oriented to time, oriented to person, oriented to place Results - Labs 03/01/24 21:03 03/01/24 21:03 Abnormal Lab Results - Last 24 Hours (Table) 03/01/24 03/01/24 03/01/24 Range/Units 21:03 21:03 21:58 WBC 14.1 H (3.8-10.6) k/uL RBC 4.06 L (4.30-5.90) m/uL Hgb 12.4 L (13.0-17.5) gm/dL Hct 38.2 L (39.0-53.0) % Plt Count 632 H (150-450) k/uL Neutrophils # 12.2 H (1.3-7.7) k/uL Sodium 135 L (137-145) mmol/L Carbon Dioxide 20 L (22-30) mmol/L BUN 35 H (9-20) mg/dL Creatinine 1.74 H (0.66-1.25) mg/dL Glucose 192 H (74-99) mg/dL Urine Glucose (UA) 4+ H (Negative) Urine Ketones 1+ H (Negative) Urine Blood Moderate H (Negative) Ur Leukocyte Esterase Trace H (Negative) Urine RBC 24 H (0-5) /hpf Urine WBC 8 H (0-5) /hpf Urine Mucus Rare H (None) /hpf Diabetes panel 03/01/24 Range/Units 21:03 Sodium 135 L (137-145) mmol/L Potassium 4.6 (3.5-5.1) mmol/L Chloride 101 (98-107) mmol/L Carbon Dioxide 20 L (22-30) mmol/L BUN 35 H (9-20) mg/dL Creatinine 1.74 H (0.66-1.25) mg/dL Glucose 192 H (74-99) mg/dL Calcium 9.3 (8.4-10.2) mg/dL AST 28 (17-59) U/L ALT 45 (4-49) U/L Alkaline Phosphatase 102 (38-126) U/L Total Protein 7.3 (6.3-8.2) g/dL Albumin 4.1 (3.5-5.0) g/dL Calcium panel 03/01/24 Range/Units 21:03 Calcium 9.3 (8.4-10.2) mg/dL Albumin 4.1 (3.5-5.0) g/dL Pituitary panel 03/01/24 Range/Units 21:03 Sodium 135 L (137-145) mmol/L Potassium 4.6 (3.5-5.1) mmol/L Chloride 101 (98-107) mmol/L Carbon Dioxide 20 L (22-30) mmol/L BUN 35 H (9-20) mg/dL Creatinine 1.74 H (0.66-1.25) mg/dL Glucose 192 H (74-99) mg/dL Calcium 9.3 (8.4-10.2) mg/dL Adrenal panel 03/01/24 Range/Units 21:03 Sodium 135 L (137-145) mmol/L Potassium 4.6 (3.5-5.1) mmol/L Chloride 101 (98-107) mmol/L Carbon Dioxide 20 L (22-30) mmol/L BUN 35 H (9-20) mg/dL Creatinine 1.74 H (0.66-1.25) mg/dL Glucose 192 H (74-99) mg/dL Calcium 9.3 (8.4-10.2) mg/dL Total Bilirubin 0.8 (0.2-1.3) mg/dL AST 28 (17-59) U/L ALT 45 (4-49) U/L Alkaline Phosphatase 102 (38-126) U/L Total Protein 7.3 (6.3-8.2) g/dL Albumin 4.1 (3.5-5.0) g/dL Assessment and Plan Assessment: 63-year-old male with history of 2 cm right-sided UPJ stone causing hydronephrosis and 2 additional nonobstructing renal stones, discussed with him given the size of the stone stone burden the most effective way to address the stone is right PCNL. Risk of the surgery was discussed in detail aware the risk which include but not limited to bleeding, infection, injury to nearby organs. Discussed with him this would be difficult to do during this hospital admission. -He is okay to have a diet from urology standpoint -He will be scheduled for right-sided PCNL for March 07 at [facility]. He can be discharged from the hospital at this time and can follow-up as an outpatient for the procedure -The Cipro -He will need to hold his Xarelto until his procedure
[2024-03-02] MEDS: ATORVASTATIN 20 MG TAB PO SCH (21:48)
[2024-03-02] MEDS: METOPROLOL TARTRATE 12.5 MG TAB PO SCH (21:48)
[2024-03-03 03:19] VITALS: RESP 16
[2024-03-03 07:55] VITALS: BP 118/66; PULSE 71; TEMP 97.8
--- NOTE | 2024-03-03 08:38 | P.PN ---
Subjective Overnight event, denies any gross hematuria or flank pain Objective - Vital Signs Vital signs: Vital Signs Temp 97.8 F 03/03/24 07:00 Pulse 71 03/03/24 07:00 Resp 16 03/03/24 07:00 BP 118/66 03/03/24 07:00 Pulse Ox 98 03/03/24 07:00 FiO2 Intake & Output 03/02/24 03/03/24 03/03/24 18:59 06:59 18:59 Weight 86.183 kg Other: Voiding Method Toilet # Voids 2 - Constitutional General appearance: Present: no acute distress - Gastrointestinal General gastrointestinal: Present: soft. Absent: distended, tenderness - Psychiatric Psychiatric: Present: A&O x's 3 - Labs CBC & Chem 7: 03/01/24 21:03 03/01/24 21:03 Labs: Microbiology - Last 24 Hours (Table) 03/01/24 22:41 Blood Culture - Preliminary Blood 03/01/24 22:41 Blood Culture - Preliminary Blood Assessment and Plan Assessment: 63-year-old male with history of 2 cm right-sided UPJ stone causing hydronephrosis and 2 additional nonobstructing renal stones, discussed with him given the size of the stone stone burden the most effective way to address the stone is right PCNL. Risk of the surgery was discussed in detail aware the risk which include but not limited to bleeding, infection, injury to nearby organs. Discussed with him this would be difficult to do during this hospital admission. -He is scheduled for right-sided PCNL for March 07 at [facility]. He can be discharged from the hospital at this time and can follow-up as an outpatient for the procedure -continue Cipro -He will need to hold his Xarelto until his procedure
--- NOTE | 2024-03-03 10:14 | P.CONS ---
History of Present Illness - Reason for Consult Consult date: 03/02/24 UTI Requesting physician: Robbie Rizvi - Chief Complaint Abnormal lab x 1 day - History of Present Illness Patient is a 63-year-old male recently admitted to hospital with sepsis secondary to the renal stone patient did have E. coli UTI and bacteremia that was sensitive to ceftriaxone and Cipro patient was treated with the IV Rocephin and subsequent discharged home on oral Cipro patient apparently has been evaluated in outpatient setting by his primary care physician repeat did have some blood draw and was advised to go back to the hospital concerning for infection patient mention he was feeling better since he got discharged from the hospital with no fever no chills did not have any abdominal pain no nausea no vomiting no diarrhea or urinary symptoms after getting a call from his primary care physician he did have some abdominal discomfort and an episode of vomiting patient on presentation to the hospital was afebrile and no fever have recorded subsequently patient was not tachycardic hypotensive or hypoxic patient did have white count of 14.1 with a left shift BUN/creatinine has been mildly elevated urine has been positive patient was started on ceftriaxone infectious disease was consulted for further management of antibiotic therapy Review of Systems Positive point and negatives has been mentioned in the HPI, complete review of systems was performed and all other systems are negative Past Medical History Past Medical History: Atrial Fibrillation, Diabetes Mellitus, Hyperlipidemia, Skin Disorder Additional Past Medical History / Comment(s): healed wound rt heel, kidney stones History of Any Multi-Drug Resistant Organisms: None Reported Past Surgical History: Cardiac Ablation, Orthopedic Surgery Additional Past Surgical History / Comment(s): cardioversion, rotator cuff surg., hand surg., throat surgery, total right knee 2021. Past Anesthesia/Blood Transfusion Reactions: No Reported Reaction Past Psychological History: No Psychological Hx Reported Smoking Status: Vaper Past Alcohol Use History: None Reported Past Drug Use History: None Reported - Past Family History Mother Family Medical History: No Reported History Medications and Allergies Home Medications Medication Instructions Recorded Confirmed Type Dapagliflozin Propanediol [Farxiga] 10 mg PO DAILY 02/23/24 03/02/24 History Semaglutide [Ozempic] 2 mg SQ JAMES 02/23/24 03/02/24 History Atorvastatin [Lipitor] 20 mg PO HS #30 tab 02/26/24 03/02/24 Rx Metoprolol Tartrate [Lopressor] 12.5 mg PO BID #30 tab 02/26/24 03/02/24 Rx cefUROXime axetiL [Ceftin] 500 mg PO BID 10 Days #20 tab 03/03/24 Rx Allergies Allergy/AdvReac Type Severity Reaction Status Date / Time No Known Allergies Allergy Verified 03/02/24 07:59 Physical Exam Vitals: Vital Signs Temp Pulse Resp BP Pulse Ox 03/02/24 08:00 79 16 117/68 97 03/02/24 07:47 75 16 112/64 03/02/24 05:00 75 18 112/64 99 03/02/24 01:02 68 16 137/55 99 03/01/24 22:46 97.7 F 73 16 167/84 100 03/01/24 19:58 98.5 F 96 22 127/56 95 Intake and Output 03/01/24 03/02/24 03/02/24 22:59 06:59 14:59 Other: Weight 86.183 kg GENERAL DESCRIPTION: Middle-aged male lying in bed, no distress. No tachypnea or accessory muscle of respiration use. HEENT: Shows Pallor , no scleral icterus. Oral mucous membrane is dry. No pharyngeal erythema or thrush NECK: Trachea central, no thyromegaly. LUNGS: Unlabored breathing. Clear to auscultation anteriorly. No wheeze or crackle. HEART: S1, S2, regular rate and rhythm. No loud murmur ABDOMEN: Soft, no tenderness , guarding or rigidity, no organomegaly EXTREMITIES: No edema of feet. SKIN: No rash, no masses palpable. NEUROLOGICAL: The patient is awake, alert, oriented x3, mood and affect normal. Results CBC & Chem 7: 03/03/24 05:54 03/03/24 05:54 Labs: Abnormal Lab Results - Last 24 Hours (Table) 03/01/24 03/01/24 03/01/24 Range/Units 21:03 21:03 21:58 WBC 14.1 H (3.8-10.6) k/uL RBC 4.06 L (4.30-5.90) m/uL Hgb 12.4 L (13.0-17.5) gm/dL Hct 38.2 L (39.0-53.0) % Plt Count 632 H (150-450) k/uL Neutrophils # 12.2 H (1.3-7.7) k/uL Sodium 135 L (137-145) mmol/L Carbon Dioxide 20 L (22-30) mmol/L BUN 35 H (9-20) mg/dL Creatinine 1.74 H (0.66-1.25) mg/dL Glucose 192 H (74-99) mg/dL Urine Glucose (UA) 4+ H (Negative) Urine Ketones 1+ H (Negative) Urine Blood Moderate H (Negative) Ur Leukocyte Esterase Trace H (Negative) Urine RBC 24 H (0-5) /hpf Urine WBC 8 H (0-5) /hpf Urine Mucus Rare H (None) /hpf Assessment and Plan (1) UTI (urinary tract infection) Status: Acute Code(s): N39.0 - URINARY TRACT INFECTION, SITE NOT SPECIFIED SNOMED Code(s): 41545594 Plan: 1patient with recent admission to the hospital did have a complicated UTI with evidence of renal stone and sepsis associated with it urology recommended workup for renal stone in outpatient setting once he complete his antibiotic therapy now presented back to the hospital with abnormal labs did have elevated white count some discomfort and episode of vomiting however no fever. 2blood and urine culture has been repeated results will be followed. 3antibiotic adjusted to Rocephin 2 g daily while waiting for the micro to be completed We will follow on clinical condition and cultures to further adjust medication if needed Thank you for this consultation we will follow the patient along with you Dictation was produced using [employer] dictation software. please excuse any grammatical, word or spelling errors. Time with Patient: Greater than 30
[2024-03-03 10:43] LABS: Basophils # (A) 0.05 X 10*3/uL (0.00-0.10); Basophils % (A) 0.5 %; Eosinophils # (A) 0.15 X 10*3/uL (0.04-0.35); Eosinophils % (A) 1.6 %; HGB 11.7 g/dL (13.0-17.0); Lymphocytes # (A) 1.31 X 10*3/uL (0.90-5.00); MCH 31.5 pg (27.0-32.0); MCHC 33.4 g/dL (32.0-37.0); MCV 94.3 FL (80.0-97.0); Mean Platelet Volume 8.9 FL (9.5-12.2); Monocytes # (A) 0.92 X 10*3/uL (0.20-1.00); Monocytes % (A) 9.8 %; NRBC Per 100 WBC 0 X 10*3/uL (0.00-0.01); Neutrophils # (A) 6.84 X 10*3/uL (1.80-7.70); Neutrophils % (A) 72.9 %; Platelet Count 418 X 10*3/uL (140-440); RBC 3.71 X 10*6/uL (4.40-5.60); RDW 12.6 % (11.5-14.5); WBC 9.38 X 10*3/uL (4.50-10.00)
[2024-03-03 10:51] LABS: BUN/Creat Ratio 16.07 Ratio (12.00-20.00); Blood Urea Nitrogen 22.5 mg/dL (9.0-27.0); Calcium 8.6 mg/dL (8.7-10.3); Carbon Dioxide 21.7 mmol/L (21.6-31.8); Chloride 102 mmol/L (96-109); Glucose 123 mg/dL (70-110); Potassium 4.6 mmol/L (3.5-5.5); Sodium 136 mmol/L (135-145)
--- NOTE | 2024-03-03 14:20 | P.DS ---
Providers Date of admission: 03/02/24 11:25 Expected date of discharge: 03/03/24 Attending physician: Kelby Sam MD Consults: 03/02/24 01:34 Consult Physician Urgent Consulting Provider: Ronnie Del Cid Consult Reason/Comments: UTI, hx r stone Do you want consulting provider notified?: Yes Consult Physician Urgent Consulting Provider: Jammie Bowen Consult Reason/Comments: Hx UTI Do you want consulting provider notified?: Yes Primary care physician: Alejandro Gee [facility] Course: Discharge Diagnosis: Sepsis secondary to right pyelonephritis Obstructing 2 cm stone in the right UPJ Multiple right nephrolithiasis Acute kidney injury Leukocytosis and thrombocytosis Type 2 diabetes Atrial fibrillation Dyslipidemia Hospital Course: 63-year-old male with history of nephrolithiasis, recent E. coli bacteremia, type 2 diabetes, dyslipidemia, atrial fibrillation status post cardiac ablation and cardioversion presenting with worsening nausea and vomiting. In the ED, temperature was 98.5, pulse 96, respiratory rate 22, blood pressure 127/56, saturating at 95% on room air. WBC 14.1, hemoglobin 12.4, platelet 632, sodium 135, bicarb 20, creatinine 1.74, glucose 192, lactate 1.4, urinalysis positive for trace leukocyte esterase, negative nitrates. CT abdomen pelvis shows obstructing 2 cm stone in the right UPJ, no hydronephrosis of the right kidney, right-sided perinephric stranding, nonobstructing 6 mm stone in the right renal pelvis and 6 cm stone in the right lower pole. Patient admitted for sepsis secondary to pyelonephritis. ID and urology consulted. Patient was started on IV antibiotics. Being discharged with oral Ceftin. Procedure planned on March 07 with urology. Asymptomatic at the time of discharge. White count had come down, renal function improving. Patient seen and examined at bedside. Vital signs reviewed and stable. General: Nontoxic, no distress, appears at stated age Derm: Warm, dry Head: Atraumatic, normocephalic, symmetric Eyes: EOMI, no lid lag, anicteric sclera Mouth: No lip lesion, mucus membranes moist Cardiovascular: S1S2 reg, no murmur Lungs: CTA bilateral, no rhonchi, no rales, no accessory muscle use Abdominal: Soft, nontender to palpation, no guarding, no appreciable organomegaly Ext: No gross muscle atrophy, no edema, no contractures Neuro: CN II-XI grossly intact, no focal neuro deficits Psych: Alert, oriented, appropriate affect A total of 33 minutes of time were spent preparing this complex discharge summary. Patient was discharged on 03/03/2024 at 1205. Patient Condition at Discharge: Stable Plan - Discharge Summary Discharge Rx Participant: No New Discharge Prescriptions: New cefUROXime axetiL [Ceftin] 500 mg PO BID 10 Days #20 tab Continue Semaglutide [Ozempic] 2 mg SQ JAMES Dapagliflozin Propanediol [Farxiga] 10 mg PO DAILY Metoprolol Tartrate [Lopressor] 12.5 mg PO BID #30 tab Atorvastatin [Lipitor] 20 mg PO HS #30 tab Discontinued Rivaroxaban [Xarelto] 20 mg PO DAILY Ciprofloxacin HCl [Cipro] 500 mg PO BID 10 Days #20 tab Discharge Medication List Dapagliflozin Propanediol [Farxiga] 10 mg PO DAILY 02/23/24 [History] Semaglutide [Ozempic] 2 mg SQ JAMES 02/23/24 [History] Atorvastatin [Lipitor] 20 mg PO HS #30 tab 02/26/24 [Rx] Metoprolol Tartrate [Lopressor] 12.5 mg PO BID #30 tab 02/26/24 [Rx] cefUROXime axetiL [Ceftin] 500 mg PO BID 10 Days #20 tab 03/03/24 [Rx] Follow up Appointment(s)/Referral(s): Alejandro Richardson MD [Primary Care Provider] - 1-2 days Patient Instructions/Handouts: Kidney Stones (DC) Activity/Diet/Wound Care/Special Instructions: Please continue oral antibiotics. You will getting your procedure on March 07. Hold xarelto.
--- NOTE | 2024-03-03 17:59 | P.PN ---
Subjective Progress Note Date: 03/03/24 Principal diagnosis: Reason for follow-up is complicated UTI Patient is a 63-year-old male recently admitted to hospital with sepsis secondary to the renal stone patient did have E. coli UTI and bacteremia that was sensitive to ceftriaxone and Cipro, patient was discharged on oral Cipro sent back to the hospital by primary care with abnormal blood draw. On today's evaluation that is 03/03/2024,the patient denies any fever or any chills, patient is breathing comfortably on room air, the patient denies chest pain shortness of breath and no significant cough, patient denies abdominal pain, no nausea vomiting or diarrhea. Mention feeling better no new symptoms. Patient white count normalized to 9.38, creatinine is 1 point 4 repeat cultures pending Objective - Vital Signs Vital signs: Vital Signs Temp 97.8 F 03/03/24 07:00 Pulse 71 03/03/24 07:00 Resp 16 03/03/24 07:00 BP 118/66 03/03/24 07:00 Pulse Ox 98 03/03/24 07:00 FiO2 Intake & Output 03/02/24 03/03/24 03/03/24 18:59 06:59 18:59 Intake Total 118 Balance 118 Weight 86.183 kg Intake: Oral 118 Other: Voiding Method Toilet Toilet # Voids 2 - Exam GENERAL DESCRIPTION: Middle-age male lying in bed in no distress RESPIRATORY SYSTEM: Unlabored breathing , decreased breath sounds at bases HEART: S1 S2 regular rate and rhythm , ABDOMEN: Soft , no tenderness EXTREMITIES: No edema feet - Labs CBC & Chem 7: 03/03/24 05:54 03/03/24 05:54 Labs: Abnormal Lab Results - Last 24 Hours (Table) 03/03/24 03/03/24 Range/Units 05:54 05:54 RBC 3.71 L (4.40-5.60) X 10*6/uL Hgb 11.7 L (13.0-17.0) g/dL Hct 35.0 L (39.6-50.0) % MPV 8.9 L (9.5-12.2) FL Immature Gran # 0.11 H (0.00-0.04) X 10*3/uL Anion Gap 12.30 H (4.00-12.00) mmol/L Est GFR (CKD-EPI) 57 L (>=60) Glucose 123 H (70-110) mg/dL Calcium 8.6 L (8.7-10.3) mg/dL Microbiology - Last 24 Hours (Table) 03/01/24 22:41 Blood Culture - Preliminary Blood 03/01/24 22:41 Blood Culture - Preliminary Blood Assessment and Plan (1) UTI (urinary tract infection) Status: Acute Code(s): N39.0 - URINARY TRACT INFECTION, SITE NOT SPECIFIED SNOMED Code(s): 20542564 Plan: 1patient with recent admission to the hospital did have a complicated UTI with evidence of renal stone and sepsis associated with it urology recommended workup for renal stone in outpatient setting once he complete his antibiotic therapy now presented back to the hospital with abnormal labs did have elevated white count some discomfort and episode of vomiting however no fever. 2blood and urine culture has been repeated results will be followed. 3patient white count has been normalized prior recommending outpatient workup for his kidney stone and has cleared him for discharge will recommend Ceftin 500 mg twice a day for 10 days on discharge discussed with the admitting physician Dictation was produced using [email or web address] dictation software. please excuse any grammatical, word or spelling errors. Time with Patient: Less than 30
--- NOTE | 2024-03-06 15:11 | CDI ---
Date: 03/06/2024 02:30:28 PM From: Annie Leggett RN, CCDS Phone: [phone] Admit Date: 03/02/2024 11:25:00 AM Patient Name: Phu Guillermo Visit Number: [id number] Discharge Date: 03/03/2024 02:10:00 PM ATTENTION: The Clinical Documentation Specialists (CDI) and [facility] Coding Staff appreciate your assistance in clarifying documentation. Please respond to the clarification below the line at the bottom and electronically sign. The CDI & [facility] Coding staff will review the response and follow-up if needed. Please note: Queries are made part of the Legal Health Record. If you have any questions, please contact the author of this message via ITS. Dr. Farhat Montelongo Sepsis is documented in the progress notes and discharge summary which may lack sufficient clinical evidence/support in the medical record. Additional clarification is requested. History/Risk Factors: DM, A fib, recently discharged from this facility after treatment for UTI and Sepsis. Presents due to abnormal labs. Admitted with sepsis. Clinical Indicators: 03/02 vital signs: 97.5-68-16-137/55 03/01-03/03 WBC: 14.1-9.38 03/01-03/03 Cr: 1.74-1.4 03/01 Lactic acid: 1.4 03/01 UA: clear, moderate blood, trace leukocyte esterase 03/01 Blood cultures: no growth after 72 hours 03/01 Urology consult: " 2 cm right-sided UPJ stone causing hydronephrosis and 2 additional nonobstructing renal stones." 03/02 ID consult: "recent admission to the hospital with a complicated UTI with evidence of renal stone and sepsis associated with it. Assessment and Plan: UTI (urinary tract infection) Discharge summary: "Patient admitted for sepsis secondary to pyelonephritis." Treatment: IV Rocephin 1000mg x1 on 03/02; IV Rocephin 2gm Q24H 03/02-03/03; 1L 0.9 NS IV bolus x1 on 03/01 Please clarify if Sepsis is a valid diagnosis? [ x ] Yes, Sepsis was present as evidence by (additional clinical support): HR on admit >90 [ ] No, Sepsis was ruled out [ ] Other (please specify diagnosis) [ ] Unable to determine MTDD
== END 2024-03-03 14:10 | disposition home or self-care (01) | DRG 872 ==
LOC: EC 19:43 → 6NMEDSUR 03-02 01:15 → OBSVTOIN 03-02 11:25 → 6NMEDSUR 03-02 11:53
PROVIDERS: ADMIT Family Medicine; ATTEND Family Medicine
DX: A41.9 Sepsis, unspecified organism (principal); N17.9 Acute kidney failure, unspecified; N13.6 Pyonephrosis; N20.2 Calculus of kidney with calculus of ureter; E11.9 Type 2 diabetes mellitus without complications; I48.91 Unspecified atrial fibrillation; D75.839 Thrombocytosis, unspecified; E78.5 Hyperlipidemia, unspecified; L98.9 Disorder of the skin and subcutaneous tissue, unspecified; Z79.84 Long term (current) use of oral hypoglycemic drugs; Z79.01 Long term (current) use of anticoagulants; Z79.899 Other long term (current) drug therapy; F17.290 Nicotine dependence, other tobacco product, uncomplicated; Z87.442 Personal history of urinary calculi; Z87.440 Personal history of urinary (tract) infections; Z96.651 Presence of right artificial knee joint
CPT/HCPCS: 36415; 74176; 80048; 80053; 81001; 83605; 85025; 87040; 96361; 96365; 96375; 96376; 99285

== ENCOUNTER 2024-03-07 05:33 | Day surgery (SDC) | payer BC ==
[2024-03-07] MEDS ORDERED: LIDOCAINE 1% (10MG/ML) FOR IV START INTRADERMA PRN (06:05)
[2024-03-07] MEDS: IV FLUID CONTINUATION 1,000 ML IV ONE ×2 (06:35→08:33)
[2024-03-07 06:36] LABS: Glucose,Whole Blood 153 mg/dL (70-110)
[2024-03-07] MEDS: ONDANSETRON 4 MG/2 ML VIAL IVP ONE (06:47)
[2024-03-07] MEDS: DEXAMETHASONE SOD PHOSPHATE 4 MG/ML 1 ML VIAL IV ONE (06:47)
[2024-03-07] MEDS: LACTATED RINGERS 1,000 ML IV SCH (06:47)
[2024-03-07] MEDS ORDERED: HYDROmorphone 0.5 MG/0.5 ML SYRINGE IVP PRN (07:00)
[2024-03-07] MEDS ORDERED: fentaNYL (PF) 50 MCG/ML 2 ML AMP IVP PRN (07:00)
[2024-03-07] MEDS ORDERED: MIDAZOLAM 2 MG/2 ML VIAL IV PRN (07:00)
[2024-03-07] MEDS ORDERED: MIDAZOLAM 2 MG/2 ML VIAL ONE (07:08)
[2024-03-07] MEDS ORDERED: PHENYLEPHRINE-0.9% NACL SYG 1,000 MCG/10 ML SYRINGE ONE (07:08)
[2024-03-07] MEDS ORDERED: SUCCINYLCHOLINE CHLORIDE 200 MG/10 ML VIAL IV ONE (07:08)
[2024-03-07] MEDS ORDERED: PROPOFOL 10 MG/ML 20 ML VIAL IV ONE (07:08)
[2024-03-07] MEDS ORDERED: fentaNYL (PF) 50 MCG/ML 2 ML AMP ONE (07:08)
[2024-03-07] MEDS ORDERED: NEOSTIGMINE 1 MG/ML 10 ML VIAL ONE (07:08)
[2024-03-07] MEDS ORDERED: LIDOCAINE 1% INJ 10MG/ML (20 ML MDV) ONE (07:08)
[2024-03-07] MEDS ORDERED: GLYCOPYRROLATE 0.2 MG/ML 2 ML VIAL ONE (07:08)
[2024-03-07] MEDS ORDERED: ROCURONIUM 10 MG/ML (5 ML VIAL) IV ONE (07:08)
[2024-03-07] MEDS: IOPAMIDOL-370 100ML BTL MISCELLANE ONE ×2 (08:10)
--- NOTE | 2024-03-07 08:27 | XR ---
EXAMINATION TYPE: XR KUB DATE OF EXAM: 03/07/2024 Comparison: CT 03/02/2024 Clinical History: 63-year-old male N20.0 Calculus of Kidney Findings: Large 1.9 cm stone right mid abdomen in keeping with the patient's known collecting system calculus. Moderate stool burden. Nonobstructive bowel gas pattern. Impression: Known 1.9 cm stone within the right renal pelvis. Moderate stool burden.
[2024-03-07] MEDS ORDERED: MAG HYDROX/AL HYDROX/SIMETH 30 ML CUP PO PRN (09:01)
[2024-03-07] MEDS ORDERED: ONDANSETRON 4 MG/2 ML VIAL IVP PRN (09:01)
[2024-03-07] MEDS ORDERED: ACETAMINOPHEN TAB 325 MG TAB PO PRN (09:01)
[2024-03-07] MEDS ORDERED: HYDROcodone/APAP 5-325MG 1 EACH TAB PO PRN (09:02)
[2024-03-07] MEDS ORDERED: HYDROmorphone 1 MG/ML 1 ML SYRINGE IVP PRN (09:03)
--- NOTE | 2024-03-07 09:10 | P.OP ---
Date of Procedure: 03/07/24 Preoperative Diagnosis: Right-sided renal stone Postoperative Diagnosis: Same Procedure(s) Performed: Cystoscopy, right ureteral catheterization, percutaneous nephrolithotomy(>2 cm) Implants: none Anesthesia: SHAY Surgeon: Ronnie Del Cid Estimated Blood Loss (ml): 75 Pathology: other (right renal stone) Condition: stable Disposition: PACU Indications for Procedure: This is a 63-year-old male with history of a 2 cm right-sided UPJ stone, and to right-sided lower pole stone each measuring 6 mm, he is symptomatic from his stone, and stones are causing hydronephrosis. Discussed with him given that his total stone burden is greater than 2 cm the most effective way to manage the stone would be a right-sided percutaneous nephrolithotomy, alternatives were also discussed. He agreed to proceed with a right-sided PCNL, aware the risk which includes but not limited to bleeding, infection, injury to the kidney. Risk of injury to nearby organs were also discussed. Risk of anesthesia was also discussed with him in detail. He understood all the risk and agreed to proceed Operative Findings: Large right-sided UPJ stone, 2 additional stones within the lower pole Description of Procedure: Patient brought to the operating room, general anesthesia was induced. She was prepped and draped sterile fashion and placed in frog-leg position on the stretcher. Cystoscopy through the 21 [place] sheath was inserted per urethra, cystoscopy was performed which showed no abnormality within the bladder. The right ureter orifice was intubated with a sensor wire. Next of the balloon occlusion catheter was passed over the wire and into the kidney. Next a 16 [place] Westfall was placed with return of clear urine. The catheter was secured to the occlusion balloon. At this point the patient was placed in prone position, all pressure points were padded. Next the right flank was prepped and draped in sterile fashion. Next access was obtained to the lower pole by Dr. Mendoza, please see his procedure note for that portion of the surgery. After 2 wires were seen going down the ureter next a a 30 [place] balloon dilators was used to dilate the tract, next a 30 [place] access sheath was advanced over the balloon under fluoroscopy into the upper pole. Next the rigid nephroscope was inserted through the access sheath, renoscopy was performed which showed a quite a large renal pelvic stone. There were also 2 additional lower pole stone that were visualized. The 2 stones within the lower pole were grasped using the grasper and removed intact using the ultrasound lithotripter, the large stone was fragmented, stone fragments were removed using the grasper, repeat renoscopy showed no sizable fragments or injury to the kidney, on fluoroscopy there was no radiopaque densities seen. This time I switched to the flexible cystoscope, complete renoscopy was performed which showed no injury to the kidney, or any's sizable stone fragments, I passed the scope into the proximal ureter which showed no stones going down the ureter, antegrade nephrostogram was performed which showed no filling defect along the course of the ureter. At this time a 12 [place] nephrostomy tube was passed over the wire through the access sheath and into the kidney, antegrade nephrostogram was performed which confirmed the nephrostomy tube to be within the renal pelvis, and there was no filling defect or evidence of contrast extravasation. At this time the access sheath was removed with the nephrostomy tube in place. The medial aspect of the incision was closed with 2-0 Vicryl, and the lateral aspect of the incision was closed with 2-0 nylon and the stitch was used to secure the nephrostomy tube in place. Sterile dressing was applied over the incision. Patient was awakened from anesthesia and taken to recovery in stable condition
--- NOTE | 2024-03-07 09:41 | FL ---
EXAMINATION TYPE: FL Perc Nephrostomy New Access Intraoperative/procedural fluoroscopic services were provided. Total fluoroscopy time is 478.7 seconds with a total of 6 submitted images to PACS. Please see the operative/procedural note for further details. DAP: 2.94 mGym2
[2024-03-07] MEDS: KETOROLAC 15 MG/ML 1 ML VIAL IVP SCH (10:01)
[2024-03-07] MEDS: SODIUM CHLORIDE 0.9% 1,000 ML IV SCH (10:03)
[2024-03-07 20:42] LABS: Glucose,Whole Blood 240 mg/dL (70-110)
[2024-03-07] MEDS: METOPROLOL TARTRATE 12.5 MG TAB PO SCH (21:24)
[2024-03-07] MEDS: CEFDINIR 300 MG CAP PO SCH (21:24)
[2024-03-07] MEDS: HEPARIN SODIUM,PORCINE 5,000 UNIT/ML 1 ML VIAL SQ SCH (21:24)
[2024-03-07] MEDS: ATORVASTATIN 20 MG TAB PO SCH (21:24)
[2024-03-08 06:00] LABS: Glucose,Whole Blood 183 mg/dL (70-110)
[2024-03-08 08:15] VITALS: BP 117/72; PULSE 72; RESP 16; TEMP 98.1
[2024-03-08] MEDS: DAPAGLIFLOZIN PROPANEDIOL 10 MG TABLET PO SCH (08:36)
--- NOTE | 2024-03-08 09:12 | P.DS ---
Providers Date of admission: 03/07/2024 Expected date of discharge: 03/08/24 Attending physician: Ronnie Del Cid MD Primary care physician: [facility] Course: On the day of admission, the patient underwent an uncomplicated right percutaneous nephrolithotomy (PCNL). The perioperative course was unremarkable. Patient remained afebrile with stable vital signs. On the first postoperative day, he was resting comfortably. The nephrostomy tube was draining urine which was faintly blood-tinged. The Westfall catheter was draining clear yellow urine. The decision was made to discharge him home after removing the Westfall catheter. He indicated that he did not need anything stronger for pain than Tylenol. Procedures: Right PCNL on March 07, 2024. Patient Condition at Discharge: Good Plan - Discharge Summary Discharge Rx Participant: Yes New Discharge Prescriptions: No Action Semaglutide [Ozempic] 2 mg SQ JAMES Dapagliflozin Propanediol [Farxiga] 10 mg PO DAILY Metoprolol Tartrate [Lopressor] 12.5 mg PO BID #30 tab Atorvastatin [Lipitor] 20 mg PO HS #30 tab cefUROXime axetiL [Ceftin] 500 mg PO BID 10 Days #20 tab lisinopriL [Zestril] 2.5 mg PO DAILY Rivaroxaban [Xarelto] 20 mg PO DAILY Discharge Medication List Dapagliflozin Propanediol [Farxiga] 10 mg PO DAILY 02/23/24 [History] Semaglutide [Ozempic] 2 mg SQ JAMES 02/23/24 [History] Atorvastatin [Lipitor] 20 mg PO HS #30 tab 02/26/24 [Rx] Metoprolol Tartrate [Lopressor] 12.5 mg PO BID #30 tab 02/26/24 [Rx] cefUROXime axetiL [Ceftin] 500 mg PO BID 10 Days #20 tab 03/03/24 [Rx] Rivaroxaban [Xarelto] 20 mg PO DAILY 03/06/24 [History] lisinopriL [Zestril] 2.5 mg PO DAILY 03/06/24 [History] Follow up Appointment(s)/Referral(s): Ronnie Del Cid MD [STAFF PHYSICIAN] - 03/13/24 9:00 am Activity/Diet/Wound Care/Special Instructions: Discharge home with right nephrostomy tube. Instruct patient how to drain nephrostomy tube bag. Drink plenty of fluids. Avoid strenuous activity. Discharge Disposition: HOME SELF-CARE
[2024-03-08 11:43] LABS: Glucose,Whole Blood 229 mg/dL (70-110)
== END 2024-03-08 13:43 | disposition home or self-care (01) ==
LOC: OR 05:33 → 4SSUR 08:51 → OR 03-08 13:43
PROVIDERS: ATTEND Urology
DX: N13.2 Hydronephrosis with renal and ureteral calculous obstruction (principal); Z79.01 Long term (current) use of anticoagulants; Z79.85 Long-term (current) use of injectable non-insulin antidiabetic drugs; Z79.899 Other long term (current) drug therapy
CPT/HCPCS: 82365; 50432; 74018; 50081; C2628; C1769 ×4; C1894; C1729; J1644 ×2; J1100; J0690; J2405; J1885 ×2; Q9967